=== PATIENT | female | born 1940 | race African-American/Black ===

== ENCOUNTER 2017-04-05 17:14 | Inpatient (IN) ==
--- NOTE | 2017-04-05 17:56 | Emergency Department Note ---
Arrival - Arrival Chief Complaint: Extremity Problem Stated Complaint: ELEVATED BP ED Nursing Triage Note: RLE PAIN AND SWELLING, ONSET OVER A MONTH AGO Mode of Arrival: Ambulatory Limitations: No Limitations Source: Patient, Family Time Seen by Provider: 04/05/17 17:55 - History of Present Illness HPI Narrative: The family complains of right lower extremity swelling and pain, especially upon waking in the morning, for the past month or more. They recall no injury. Patient has not had problems with this in the past and has no history of DVT. They also complain that her blood pressure "has been running triple digits" despite her being compliant with her medications. Allergies/Adverse Reactions: Allergies Allergy/AdvReac Type Severity Reaction Status Date / Time No Known Allergies Allergy Verified 04/05/17 17:22 Home Medications: Home Medications Medication Instructions Recorded Confirmed Type Aspirin EC Tab 1 tablet PO DAILY 01/09/17 01/09/17 History Dimethic/Zinc Ox/Vits A,D/Aloe [A 1 each TOP PRN PRN 01/09/17 01/09/17 History and D Diaper Rash Cream] Donepezil [Aricept] 10 mg PO DAILY 01/09/17 01/09/17 History Ferrous Sulfate Tab [Feosol 325 mg PO DAILY 01/09/17 01/09/17 History Original Tab] Glimepiride 1 mg PO DAILY W/BREAKFAST 01/09/17 01/09/17 History Latanoprost [Latanoprost 0.005 % 1 drops BOTH EYES BEDTIME 01/09/17 01/09/17 History Oph Soln] Lisinopril 20 mg PO DAILY 01/09/17 01/09/17 History Metformin HCl [Glucophage] 1,000 mg PO BID 01/09/17 01/09/17 History Rosuvastatin [Crestor] 10 mg PO DAILY 01/09/17 01/09/17 History Skin Healing Oint (Aquaphor) 1 each TOP PRN PRN 01/09/17 01/09/17 History [Aquaphor] Verapamil HCl [Verapamil ER Cap] 240 mg PO BEDTIME 01/09/17 01/09/17 History cloNIDine TAB [Catapres Tab] 0.2 mg PO BEDTIME 01/09/17 01/09/17 History dimenhyDRINATE TAB [Dramamine] 50 mg PO Q4-6H PRN 01/09/17 01/09/17 History Famotidine Tab [Pepcid Tab] 40 mg PO BEDTIME tablet 01/20/17 Rx Megestrol Tab [Megace Tab] 40 mg PO DAILY #30 tablet 01/20/17 Rx QUEtiapine [SEROquel] 12.5 mg PO DAILY@1800 tablet 01/20/17 Rx Review of System - Review of System 12 point system: reviewed and no additional remarkable complaints except as stated - Review of System Cardiovascular: Present: edema Musculoskeletal: Present: leg pain Medical,Surgical,& Family Hx - Medical History Cardio: History of: Hypertension Psychological: History of: Anxiety Disorders Neurology: History of: Cerebrovascular Accident, Dementia HEENT: History of: Glaucoma (wears glasses) Endocrine: History of: Diabetes Mellitus (NIDDM), Dyslipidemia Genitourinary: History of: Problems (Incontinence) Gastrointestinal: History of: GERD, GI Problems (Incontinence) Musculoskeletal: History of: Musculoskeletal Problems (Weakness) - Surgical History Abdominal Surgeries: Surgical HX of: Colonoscopy, EGD Reproductive Surgeries: Surgical HX of;: Hysterectomy - Family History Family History: noncontributory - Social History Smoking Status: Former smoker Exam Physical Examination: GENERAL: Alert. No acute distress. HEENT: Normocephalic and atraumatic. There is no nasal drainage. No pharyngeal erythema or exudate. NECK: Normal inspection. Supple. No lymphadenopathy or meningismus. LUNGS: No respiratory distress. Clear to auscultation bilaterally, no wheezes, rales or rhonchi. HEART: Regular rate and rhythm. ABDOMEN: Soft, nontender and nondistended with normoactive bowel sounds. BACK: Normal inspection. SKIN: Color normal. Warm and dry. EXTREMITIES: Mild diffuse right lower extremity tenderness. Equivocal Homans sign. Pitting edema to the upper tibia. Right lower extremity is slightly larger than the left. The distal extremity is neurovascularly intact and range of motion is full. NEUROLOGICAL/PSYCHIATRIC: Alert and oriented -3 with normal mood and affect. Cranial nerves normal. No motor or sensory deficit. Vital Signs: Vital Signs Temperature 98.2 F 04/05/17 17:18 Pulse Rate 84 04/05/17 18:14 Respiratory Rate 18 04/05/17 18:14 Blood Pressure 122/73 04/05/17 18:14 O2 Sat by Pulse Oximetry 100 04/05/17 18:14 Course - Reevaluation(s) Reevaluation #1: The patient has remained stable in the ER. Her blood pressure here was normal. The Doppler ultrasound shows a right sided DVT from the superficial femoral vein into the popliteal, nonoccluding. I have discussed the patient with Dr. Chung who will see her and admit. I have ordered Lovenox. Time: 19:41 Results - Labs CBC & BMP: 04/05/17 19:16 Disposition Clinical Impression: Deep vein thrombosis of lower extremity Case discussed with: patient, patient's family Disposition: Still a Patient Condition: Stable Time of Disposition: 19:42
--- NOTE | 2017-04-05 19:01 | Ultrasound Report ---
US venous doppler LE RT Indication: Pain and swelling. Comparison: None. Technique: Using transcutaneous probe, color Doppler, spectral Doppler, and grayscale images prior to and following compression were obtained of the right lower extremity. Ultrasound images were captured and stored. Interrogated venous structures include the right common femoral vein, superficial femoral vein (proximal, mid, and distal), and popliteal vein. Findings: Nonoccluding thrombus is demonstrated within the right superficial femoral vein, involving the mid to distal vessel propagating caudally into the right popliteal vein. Spectral flow and color flow are present within the interrogated venous segments. Impression: 1. Nonoccluding venous thrombus is present within the right lower extremity as detailed. Findings were discussed with Dr. Parks at the time of image acquisition. 04/05/2017 6:57 PM PROCEDURE INTERPRETED AT [facility] DEPARTMENT OF RADIOLOGY Final Report Signed by: Dr. Zach Foster
[2017-04-05 19:32] LABS: Basophils % 0.3 % (0.0-0.8); Eosinophils # 0.4 10*3/uL (0.0-0.87); Eosinophils % 4.2 % (0.00-10.9); Hematocrit 30.2 VOL% (35.7-47.0); Immature Granulocytes % 0.4 %; Immature Granulocytes Absolute 0.04 #; Lymphocytes # 3.2 10*3/uL (1.4-4.0); Lymphocytes % 33.4 % (21.3-54.2); Mean Corpuscular HGB Conc 33.1 GM/DL (32-36); Mean Corpuscular Hemoglobin 29 PG (27-34); Mean Corpuscular Volume 88.6 FL (87-102); Mean Platelet Volume 8.7 FL (9.6-12.0); Monocytes # 0.5 10*3/uL (0.11-0.8); Monocytes % 5.7 % (1.7-12.7); Neutrophils # 5.3 10*3/uL (1.4-7.4); Platelet Count 345 T/CUMM (130-400); Red Blood Count 3.41 MC/CUMM (3.8-5.5); Red Cell Distribution Width 14.3 % (9.3-17.3); White Blood Count 9.5 T/CUMM (4-12)
[2017-04-05] MEDS ORDERED: ENOXAPARIN 80 MG/0.8 ML SYRINGE SUBCUT STA (19:39)
[2017-04-05 19:44] LABS: PT Patient Result 11.1 SECS; Partial Thromboplastin Time 26.3 SECS (0-40)
[2017-04-05] MEDS ORDERED: ENOXAPARIN 80 MG/0.8 ML SYRINGE SUBCUT ONE (20:06)
--- NOTE | 2017-04-05 20:09 | Hospitalist History & Physical ---
Assessment and Plan - Time spent with patient Time spent discussing smoking cessation with patient: 3 to 10 minutes (1) Deep vein thrombosis of lower extremity Status: Acute Assessment and plan: The patient is admitted to the hospital for initiation of anticoagulation with Lovenox and Coumadin. The patient will follow up for pro time test with Dr. Klein in [place]. The patient's home medicines are reconciled and restarted we need to follow-up and get a current list of medicines from the patient's pharmacy. Current Visit: Yes Qualifiers: Affected thrombotic vein of extremity: popliteal Chronicity: acute Laterality: right Qualified Code(s): I82.431 - Acute embolism and thrombosis of right popliteal vein (2) Dementia with psychosis Status: Acute Current Visit: No (3) Late effects of CVA (cerebrovascular accident) Status: Acute Current Visit: No History of Present Illness Chief complaint: Right leg pain History of present illness: Ms. Gleason is a 76 year old female patient of Dr. Klein in [facility]. 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 The patient was last hospitalized at [facility] about a year and a half ago to help improve her mobility. She was unfortunately unable to participate with therapy due to her dementia. The patient has been at home in the care of her children. Beginning about 2 weeks ago she began having right popliteal discomfort. She had minimal swelling which has worsened. The patient has had minimal heat in the leg. The patient' s symptoms are moderate, continuous, and worsening slowly. The patient's symptoms have not been associated with fever, chills, shortness of breath, chest pain. The patient is found to have deep vein thrombosis on the right popliteal vein on ultrasound in fast track this afternoon and is admitted to the hospital to begin Coumadin and Lovenox. I screen the patient for tobacco and she is a current smoker. I gave her 4 minutes education concerning the need to discontinue smoking. I reconciled the patient's home medications of the time of admission. The patient is her own decision maker and wishes to be full code. Home Medications Medication Instructions Recorded Confirmed Type Aspirin EC Tab 1 tablet PO DAILY 01/09/17 01/09/17 History Dimethic/Zinc Ox/Vits A,D/Aloe [A 1 each TOP PRN PRN 01/09/17 01/09/17 History and D Diaper Rash Cream] Donepezil [Aricept] 10 mg PO DAILY 01/09/17 01/09/17 History Ferrous Sulfate Tab [Feosol 325 mg PO DAILY 01/09/17 01/09/17 History Original Tab] Glimepiride 1 mg PO DAILY W/BREAKFAST 01/09/17 01/09/17 History Latanoprost [Latanoprost 0.005 % 1 drops BOTH EYES BEDTIME 01/09/17 01/09/17 History Oph Soln] Lisinopril 20 mg PO DAILY 01/09/17 01/09/17 History Metformin HCl [Glucophage] 1,000 mg PO BID 01/09/17 01/09/17 History Rosuvastatin [Crestor] 10 mg PO DAILY 01/09/17 01/09/17 History Skin Healing Oint (Aquaphor) 1 each TOP PRN PRN 01/09/17 01/09/17 History [Aquaphor] Verapamil HCl [Verapamil ER Cap] 240 mg PO BEDTIME 01/09/17 01/09/17 History cloNIDine TAB [Catapres Tab] 0.2 mg PO BEDTIME 01/09/17 01/09/17 History dimenhyDRINATE TAB [Dramamine] 50 mg PO Q4-6H PRN 01/09/17 01/09/17 History Famotidine Tab [Pepcid Tab] 40 mg PO BEDTIME tablet 01/20/17 Rx Megestrol Tab [Megace Tab] 40 mg PO DAILY #30 tablet 01/20/17 Rx QUEtiapine [SEROquel] 12.5 mg PO DAILY@1800 tablet 01/20/17 Rx Allergies Allergy/AdvReac Type Severity Reaction Status Date / Time No Known Allergies Allergy Verified 04/05/17 17:22 Medical,Surgical,& Family Hx - Medical History Cardio: History of: Hypertension Psychological: History of: Anxiety Disorders Neurology: History of: Cerebrovascular Accident, Dementia HEENT: History of: Glaucoma (wears glasses) Endocrine: History of: Diabetes Mellitus (NIDDM), Dyslipidemia Genitourinary: History of: Problems (Incontinence) Gastrointestinal: History of: GERD, GI Problems (Incontinence) Musculoskeletal: History of: Musculoskeletal Problems (Weakness) - Surgical History Abdominal Surgeries: Surgical HX of: Colonoscopy, EGD Reproductive Surgeries: Surgical HX of;: Hysterectomy - Family History Family History: Reports;: Family Hypertension - Social History Smoking Status: Former smoker Marital Status: Lives With:: Children Functional capacity: uses cane/walker 12 point system: reviewed and no additional remarkable complaints except as stated Exam - Constitutional Vitals: Period Temp Pulse Resp BP Sys/Benavides Pulse Ox Last 24 Hr 98.2 F 68-84 16-18 122-128/68-73 99-100 Exam: Constitutional System: Mild distress. No tremulousness. Head: Normocephalic, atraumatic. Ears, Nose and Throat System: No evidence of Otitis or Mastoiditis. No epistaxis or discharge Eyes System: Pupils equal, round, and reactive. Extraocular muscles intact. Neck: Supple, without adenopathy, No jugular venous distention. No thyromegaly , neck mass, or prior surgery apparent. Respiratory System: Chest clear to auscultation. Cardiovascular System: Heart with regular rate and rhythm. No murmur. GI System: Abdomen soft, nontender. Normo active bowel sounds present. Musculoskeletal System: limbs with no pedal edema. There is some popliteal fullness on the right and the popliteal space is tender. She has mild fever in the lower extremity. Full distal pulses. Neurological System: No discernable sensory deficit. No aphasia Psychiatric System: Conversation is irrational Results - Labs CBC & BMP: 04/05/17 19:16 Lab Results: I have reviewed the past 24 hour labs Labs: Ultrasound of lower extremities reveals right popliteal deep vein thrombosis
[2017-04-05 20:27] LABS: Calcium 9.8 MG/DL (8.5-10.1); Osmolality,Calculated 275.7 MOS/KG (273-304); Potassium 3.8 MMOL/L (3.5-5.1)
[2017-04-05] MEDS ORDERED: ONDANSETRON 4 MG/2 ML VIAL IV PRN (20:41)
[2017-04-05] MEDS: SODIUM CHLORIDE 0.9% 1,000 ML IV SCH (22:30)
[2017-04-05] MEDS: WARFARIN 7.5 MG TABLET PO SCH (22:35)
[2017-04-05] MEDS: VERAPAMIL SR 240 MG TABLET PO SCH (22:35)
[2017-04-06 06:39] LABS: Basophils % 0.5 % (0.0-0.8); Eosinophils # 0.4 10*3/uL (0.0-0.87); Eosinophils % 6.7 % (0.00-10.9); Hemoglobin 8.7 GM/DL (12.0-16.0); Immature Granulocytes % 0.5 %; Immature Granulocytes Absolute 0.03 #; Lymphocytes # 2.3 10*3/uL (1.4-4.0); Lymphocytes % 38.8 % (21.3-54.2); Mean Corpuscular HGB Conc 33.5 GM/DL (32-36); Mean Corpuscular Hemoglobin 29 PG (27-34); Mean Corpuscular Volume 87.2 FL (87-102); Mean Platelet Volume 9.2 FL (9.6-12.0); Monocytes # 0.5 10*3/uL (0.11-0.8); Monocytes % 7.8 % (1.7-12.7); Neutrophils # 2.7 10*3/uL (1.4-7.4); Neutrophils % 45.7 % (38.7-73.9); Platelet Count 311 T/CUMM (130-400); Red Blood Count 2.98 MC/CUMM (3.8-5.5); Red Cell Distribution Width 14.2 % (9.3-17.3); White Blood Count 5.9 T/CUMM (4-12)
[2017-04-06 06:42] LABS: INR 1.1; PT Patient Result 11.6 SECS
[2017-04-06 07:03] LABS: Calcium 9.4 MG/DL (8.5-10.1); Magnesium 1.7 MG/DL (1.8-2.4); Osmolality,Calculated 277.5 MOS/KG (273-304); Potassium 3.7 MMOL/L (3.5-5.1)
[2017-04-06 07:16] LABS: Risk Ratio 3.67; Thyroid Stimulating Hormone 1.94 uIU/ml (0.358-3.74); VLDL CHOLESTEROL 24.4 MG/DL
[2017-04-06] MEDS: ASPIRIN EC 81 MG TABLET PO SCH (08:51)
[2017-04-06] MEDS: PANTOPRAZOLE 40 MG TABLET PO SCH (08:51)
[2017-04-06] MEDS ORDERED: ENOXAPARIN 80 MG/0.8 ML SYRINGE SUBCUT SCH (09:00)
--- NOTE | 2017-04-06 11:38 | Hospitalist Progress Note ---
Assessment and Plan (1) Deep vein thrombosis of lower extremity Status: Acute Assessment and plan: The patient is admitted to the hospital for initiation of anticoagulation with Lovenox and Coumadin. The patient will follow up for pro time test with Dr. Klein in [place]. T the patient continues on her usual home regimen of medications Current Visit: Yes Qualifiers: Affected thrombotic vein of extremity: popliteal Chronicity: acute Laterality: right Qualified Code(s): I82.431 - Acute embolism and thrombosis of right popliteal vein (2) Dementia with psychosis Status: Acute Current Visit: No (3) Late effects of CVA (cerebrovascular accident) Status: Acute Current Visit: No Hospitalist: Subjective Interval history: The patient states that she feels better today. The patient is cooperative with medical care. The patient is tolerating Coumadin plus Lovenox therapy for deep vein thrombosis. The patient states her leg is less symptomatic today. Exam - Constitutional Vitals: Period Temp Pulse Resp BP Sys/Benavides Pulse Ox Last 24 Hr 96.8 F-98.9 F 68-89 16-20 103-159/51-73 95-100 Exam: Constitutional System: Mild distress. No tremulousness. Head: Normocephalic, atraumatic. Ears, Nose and Throat System: No evidence of Otitis or Mastoiditis. No epistaxis or discharge Eyes System: Pupils equal, round, and reactive. Extraocular muscles intact. Neck: Supple, without adenopathy, No jugular venous distention. No thyromegaly , neck mass, or prior surgery apparent. Respiratory System: Chest clear to auscultation. Cardiovascular System: Heart with regular rate and rhythm. No murmur. GI System: Abdomen soft, nontender. Normo active bowel sounds present. Musculoskeletal System: limbs with no pedal edema. There is some popliteal fullness on the right and the popliteal space is less tender than yesterday. She has mild fever in the lower extremity. Full distal pulses. Neurological System: No discernable sensory deficit. No aphasia Psychiatric System: Conversation is irrational Results - Labs CBC & BMP: 04/06/17 06:09 04/06/17 06:09 Lab Results: I have reviewed the past 24 hour labs Labs: INR equals 1.1 today Quality Measures - VTE Contraindication to Pharmacological VTE Prophylaxis: Already on Theraputic Agent , No Prophylaxis Needed
[2017-04-06] MEDS: ENOXAPARIN 100 MG/ML SYRINGE SUBCUT SCH ×2 (12:23→23:23)
[2017-04-06] MEDS: WARFARIN 7.5 MG TABLET PO SCH (17:37)
[2017-04-06] MEDS: QUEtiapine 25 MG TABLET PO SCH (17:38)
[2017-04-06] MEDS ORDERED: ALBUTEROL/IPRATROPIUM 3 ML NEB RESP TX SCH (19:00)
[2017-04-06] MEDS: ALBUTEROL/IPRATROPIUM 3 ML NEB RESP TX SCH ×2 (19:26→23:22)
[2017-04-06] MEDS: VERAPAMIL SR 240 MG TABLET PO SCH (20:43)
[2017-04-06] MEDS: LATANOPROST 0.005% OPH SOLN 2.5 ML BOTTLE BOTH EYES SCH (20:45)
[2017-04-07] MEDS: SODIUM CHLORIDE 0.9% 1,000 ML IV SCH ×2 (01:23→09:10)
[2017-04-07 06:01] LABS: INR 1.5; PT Patient Result 16.1 SECS
[2017-04-07 06:20] LABS: Calcium 9.1 MG/DL (8.5-10.1); Magnesium 1.9 MG/DL (1.8-2.4); Osmolality,Calculated 282.3 MOS/KG (273-304); Potassium 3.3 MMOL/L (3.5-5.1)
[2017-04-07] MEDS: ALBUTEROL/IPRATROPIUM 3 ML NEB RESP TX SCH ×4 (07:34→19:57)
[2017-04-07] MEDS: DONEPEZIL 10 MG TABLET PO SCH (09:09)
[2017-04-07] MEDS: GLIMEPIRIDE 2 MG TABLET PO SCH (09:09)
[2017-04-07] MEDS: FERROUS SULFATE 325 MG TABLET PO SCH (09:09)
[2017-04-07] MEDS: ASPIRIN EC 81 MG TABLET PO SCH (09:09)
[2017-04-07] MEDS: PANTOPRAZOLE 40 MG TABLET PO SCH (09:09)
--- NOTE | 2017-04-07 11:36 | Hospitalist Progress Note ---
Assessment and Plan (1) Deep vein thrombosis of lower extremity Status: Acute Assessment and plan: The patient is admitted to the hospital for initiation of anticoagulation with Lovenox and Coumadin. The patient will follow up for pro time test with Dr. Klein in [place]. T the patient continues on her usual home regimen of medications Current Visit: Yes Qualifiers: Affected thrombotic vein of extremity: popliteal Chronicity: acute Laterality: right Qualified Code(s): I82.431 - Acute embolism and thrombosis of right popliteal vein (2) Dementia with psychosis Status: Acute Current Visit: No (3) Late effects of CVA (cerebrovascular accident) Status: Acute Current Visit: No Hospitalist: Subjective Interval history: Mrs. Gleason has less pain in her right leg today. She is cooperative with care. INR is increasing. I anticipate discharge home tomorrow. Exam - Constitutional Vitals: Period Temp Pulse Resp BP Sys/Benavides Pulse Ox Last 24 Hr 96.6 F-98.8 F 73-104 16-22 109-139/54-68 88-100 Exam: Constitutional System: Mild distress. No tremulousness. Head: Normocephalic, atraumatic. Ears, Nose and Throat System: No evidence of Otitis or Mastoiditis. No epistaxis or discharge Eyes System: Pupils equal, round, and reactive. Extraocular muscles intact. Neck: Supple, without adenopathy, No jugular venous distention. No thyromegaly , neck mass, or prior surgery apparent. Respiratory System: Chest clear to auscultation. Cardiovascular System: Heart with regular rate and rhythm. No murmur. GI System: Abdomen soft, nontender. Normo active bowel sounds present. Musculoskeletal System: limbs with no pedal edema. There is some popliteal fullness on the right and the popliteal space is less tender than yesterday. She has mild fever in the lower extremity. Full distal pulses. Neurological System: No discernable sensory deficit. No aphasia Psychiatric System: Conversation is irrational Results - Labs CBC & BMP: 04/06/17 06:09 04/07/17 05:08 Lab Results: I have reviewed the past 24 hour labs Quality Measures - VTE Contraindication to Pharmacological VTE Prophylaxis: Already on Theraputic Agent , No Prophylaxis Needed
[2017-04-07] MEDS: ENOXAPARIN 100 MG/ML SYRINGE SUBCUT SCH ×2 (13:38→23:45)
[2017-04-07] MEDS: WARFARIN 7.5 MG TABLET PO SCH (17:05)
[2017-04-07] MEDS: QUEtiapine 25 MG TABLET PO SCH (17:06)
[2017-04-07] MEDS: VERAPAMIL SR 240 MG TABLET PO SCH (20:33)
[2017-04-07] MEDS: LATANOPROST 0.005% OPH SOLN 2.5 ML BOTTLE BOTH EYES SCH (20:33)
[2017-04-08] MEDS: SODIUM CHLORIDE 0.9% 1,000 ML IV SCH (00:31)
[2017-04-08 05:46] LABS: Calcium 8.8 MG/DL (8.5-10.1); Magnesium 1.9 MG/DL (1.8-2.4)
[2017-04-08 07:00] LABS: INR 3.1
[2017-04-08] MEDS: ALBUTEROL/IPRATROPIUM 3 ML NEB RESP TX SCH ×2 (07:04→11:04)
[2017-04-08 07:07] LABS: PT Patient Result 35.6 SECS
[2017-04-08 08:59] VITALS: BP 126/61
[2017-04-08] MEDS ORDERED: OXYMETAZOLINE 0.05% NASAL SPRAY 15 ML BOTTLE BOTH NARES PRN (09:04)
[2017-04-08] MEDS: DONEPEZIL 10 MG TABLET PO SCH (10:00)
[2017-04-08] MEDS: GLIMEPIRIDE 2 MG TABLET PO SCH (10:01)
[2017-04-08] MEDS: FERROUS SULFATE 325 MG TABLET PO SCH (10:01)
[2017-04-08] MEDS: ASPIRIN EC 81 MG TABLET PO SCH (10:01)
[2017-04-08] MEDS: PANTOPRAZOLE 40 MG TABLET PO SCH (10:01)
--- NOTE | 2017-04-08 10:41 | Discharge Summary ---
Hospital Course - Hospital Course Hospital Course: The patient was admitted to the hospital with right greater than left leg pain. The patient's discomfort was located behind the right knee and Doppler ultrasound of lower extremities revealed left popliteal vein thrombosis. The patient was taking megestrol to help her appetite and this was discontinued. The patient was started on Lovenox and Coumadin was added. The patient's INR was therapeutic prior to discharge. The patient had no evidence of pulmonary embolism. The patient will follow up on Tuesday with pro time test and adjustment of Coumadin by Dr. Klein her primary care physician. On the date of discharge, chest is clear, abdomen soft and heart has regular rate and rhythm. The patient was screened for tobacco and found to be a prior smoker. The patient was given for minutes tobacco cessation education. The patient is her own decision maker and wished to be full code. The patient's medications were reconciled at the time of admission and again upon discharge. Discharge [id number] time today was 32 minutes. 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) Status: Chronic Discharge Plan - Discharge Data Disposition: Disch To Home/Self Care Condition at Discharge: Stable Discharge Diet: diabetic diet Activity: resume usual activities as tolerated - Discharge Medications New Warfarin [Coumadin] 3 mg PO DAILY@1800 #100 tablet Continue Ipratropium/Albuterol Inhaler [Combivent Respimat Inhaler] 1 puff INH QID Famotidine Tab [Pepcid Tab] 40 mg PO BEDTIME cloNIDine TAB [Catapres Tab] 0.2 mg PO BEDTIME Ferrous Sulfate Tab [Feosol Original Tab] 325 mg PO DAILY QUEtiapine [SEROquel] 12.5 mg PO DAILY@1800 tablet Latanoprost [Latanoprost 0.005 % Oph Soln] 1 drops BOTH EYES BEDTIME Verapamil HCl [Verapamil ER Cap] 240 mg PO BEDTIME Glimepiride 1 mg PO DAILY W/BREAKFAST Donepezil [Aricept] 10 mg PO DAILY Rosuvastatin [Crestor] 10 mg PO DAILY Aspirin EC Tab 1 tablet PO DAILY Metformin HCl [Glucophage] 1,000 mg PO BID Discontinued Megestrol Tab [Megace Tab] 40 mg PO DAILY - Follow Up or Referral - Forms/Instructions Exam - Constitutional Vitals: Period Temp Pulse Resp BP Sys/Benavides Pulse Ox Last 24 Hr 97.6 F-98 F 74-87 15-20 109-138/59-66 92-99 Discharge Results Procedures and tests throughout hospitalization: Pending Orders 04/09/17 04:00 Basic Metabolic Panel w/Mg IN AM Prothrombin Time INR IN AM 04/10/17 04:00 Basic Metabolic Panel w/Mg IN AM Prothrombin Time INR IN AM Labs on day of discharge: Labs from last 24 hours 04/08/17 04/08/17 04:44 04:44 INR 3.1 PT Patient/Control Mix 35.6 D Sodium 143 Potassium 4.0 Chloride 108 H Carbon Dioxide 27 Anion Gap 12.0 BUN 9 Creatinine 0.80 GFR Calculation 94 BUN/Creatinine Ratio 11.00 Glucose 147 H Calculated Osmolality 286.0 Calcium 8.8 Magnesium 1.9 DS: Provider Date of admission: 04/05/17 19:46 Primary care physician: . No PCP Attending physician on admission: Judd Crocker MD Discharging clinician: Pavel Chung MD
== END 2017-04-08 12:33 | disposition home health service (06) | DRG 300 ==
LOC: N.ED 17:14 → N.EDINP 19:46 → SUATTDRO 19:46 → N.EDINP 20:34 → N.4E 20:40
PROVIDERS: ADMIT Family Medicine; ATTEND Internal Medicine

== ENCOUNTER 2017-05-05 08:20 | Inpatient (IN) ==
--- NOTE | 2017-05-05 09:14 | Emergency Department Note ---
Prabhjot Uribe Hilary, am scribing for, and in the presence of, Rob Schofield MD 09: 08. Kanwal Uribe James D, MD, personally performed the services described in this documentation, ascribed by Shreya Rick in my presence, and it is both accurate and complete 912 . Arrival - Arrival Chief Complaint: Extremity Problem Stated Complaint: evaluation for clot,[facility]: pain in right leg. stopped ambulating yesterday. has been being treated for a clot in right leg for more than two weeks. is taking coumadin for that Mode of Arrival: Wheelchair Limitations: No Limitations Source: Patient, RN Notes Reviewed Time Seen by Provider: 05/05/17 09:01 - History of Present Illness HPI Narrative: Pt is a 76 y/o presenting to the ED with c/o of pain in her right leg which onset yesterday. Pt is of limited historical value due to her dementia. Pts family states that she has been treated for a clot in her right leg for 2 weeks and is taking coumadin for it. Her family reports that she stopped walking this morning or putting weight on her legs. She denies any pain or SOB. Pt has a PMHx of HTN, CVA, Dementia, Glaucoma, Dyslipidemia, NIDDM and GI Incontinence. No other complaints or problems stated in the ED. Onset (ago): hour(s) Consistency: constant Severity: mild Severity scale (1-10): 1 Allergies/Adverse Reactions: Allergies Allergy/AdvReac Type Severity Reaction Status Date / Time No Known Allergies Allergy Verified 04/05/17 17:22 Home Medications: Home Medications Medication Instructions Recorded Confirmed Type Aspirin EC Tab 1 tablet PO DAILY 01/09/17 04/06/17 History Donepezil [Aricept] 10 mg PO DAILY 01/09/17 04/06/17 History Ferrous Sulfate Tab [Feosol 325 mg PO DAILY 01/09/17 04/06/17 History Original Tab] Glimepiride 1 mg PO DAILY W/BREAKFAST 01/09/17 04/06/17 History Latanoprost [Latanoprost 0.005 % 1 drops BOTH EYES BEDTIME 01/09/17 04/06/17 History Oph Soln] Metformin HCl [Glucophage] 1,000 mg PO BID 01/09/17 04/06/17 History Rosuvastatin [Crestor] 10 mg PO DAILY 01/09/17 04/06/17 History Verapamil HCl [Verapamil ER Cap] 240 mg PO BEDTIME 01/09/17 04/06/17 History cloNIDine TAB [Catapres Tab] 0.2 mg PO BEDTIME 01/09/17 04/06/17 History QUEtiapine [SEROquel] 12.5 mg PO DAILY@1800 tablet 01/20/17 04/06/17 Rx Famotidine Tab [Pepcid Tab] 40 mg PO BEDTIME 04/06/17 04/06/17 History Ipratropium/Albuterol Inhaler 1 puff INH QID 04/06/17 04/06/17 History [Combivent Respimat Inhaler] Warfarin [Coumadin] 3 mg PO DAILY@1800 #100 tablet 04/08/17 Rx Review of System - Review of System 12 point system: reviewed and no additional remarkable complaints except as stated - Review of System Constitutional: Present: weakness. Absent: fever Respiratory: Absent: respiratory distress (SOB) Cardiovascular: Absent: chest pain Gastrointestinal: Absent: abdominal pain, nausea, vomiting Musculoskeletal: Absent: leg pain Neurological: Present: weakness Medical,Surgical,& Family Hx - Medical History Cardio: History of: Hypertension Psychological: History of: Anxiety Disorders Neurology: History of: Cerebrovascular Accident, Dementia HEENT: History of: Glaucoma (wears glasses) Endocrine: History of: Diabetes Mellitus (NIDDM), Dyslipidemia Genitourinary: History of: Problems (Incontinence) Gastrointestinal: History of: GERD, GI Problems (Incontinence) Musculoskeletal: History of: Musculoskeletal Problems (Weakness) - Surgical History Abdominal Surgeries: Surgical HX of: Colonoscopy, EGD Reproductive Surgeries: Surgical HX of;: Hysterectomy - Family History Family History: Reports;: Family Hypertension Denies;: Family Diabetes - Social History Smoking Status: Former smoker Exam Physical Examination: GENERAL: This is a well-nourished, well-developed female in no apparent distress. VITAL SIGNS: Temperature: 99.3 Pulse: 107 Respiratory: 20 Blood Pressure: 121/79 O2 Sat: 99 HEENT: Head is normocephalic and atraumatic. Pupils are equally round and reactive to light. Extraocular movement are intact. Oropharynx is benign with moist mucous membranes. NECK: Neck is soft and supple without tenderness. There are no masses. There is no lymphadenopathy. LUNGS: Lungs are clear to auscultation bilaterally. Chest rises symmetrically. There is no chest wall tenderness. CV: Heart is regular rate and rhythm without murmurs, rubs, or gallops. ABDOMEN: Abdomen is soft, non-tender to palpation. There are no abnormal masses palpated. There is no organomegaly. Bowel sounds are present and active. SKIN: Skin is warm and dry. No rash. EXTREMITIES: Patient has full range of motion without tenderness. There is no pedal edema. NEUROLOGIC: Awake, alert, and oriented x4. Cranial nerves II through XII are grossly intact. Motor weakness in lower extremities 2/5 bilaterally, 3-4/5 in upper extremities bilaterally. Vital Signs: Vital Signs Temperature 99.3 F 05/05/17 08:31 Pulse Rate 107 H 05/05/17 08:31 Respiratory Rate 20 05/05/17 08:31 Blood Pressure 121/79 05/05/17 08:31 O2 Sat by Pulse Oximetry 99 05/05/17 08:31 Course - Consultations Consultation #1: Discussed with hospitalist. Patient will be admitted to their service. Time: 11:01 Results - Labs CBC & BMP: 05/05/17 09:45 05/05/17 09:45 Lab Results: I have reviewed the patients labs Labs: Laboratory Tests 05/05/17 09:15 POC Glucose 233 H Laboratory Tests 05/05/17 09:45 WBC 8.0 RBC 3.43 L Hgb 10.0 L Hct 29.7 L MCV 86.6 L Plt Count 377 MPV 8.7 L Laboratory Tests 05/05/17 09:45 INR 1.1 PT Patient/Control Mix 12.0 D Circ Anticoag PTT 31.0 Laboratory Tests 05/05/17 05/05/17 09:45 10:03 Sodium 136 Potassium 3.9 Chloride 102 Carbon Dioxide 26 Glucose 277 H ALT 11 L Globulin 4.2 H Albumin/Globulin Ratio 0.8 L Urine pH 5.0 Ur Specific [place] 1.013 Urine Glucose (UA) 150 Urine Ketones 5 Urine Urobilinogen < 2.0 H Urine RBC <1 Urine WBC 1 - Diagnostic Findings Procedure: Chest x-ray: report reviewed by me, image reviewed by me (1. ASVD 2. No acute cardiopulmonary pathology with a few scattered reticular nodular densities are partially calcified suggesting granuloma changes inthe lung hernandez bilaterally. ), CT: report reviewed by me, image reviewed by me (HEAD: Chronic ischemic changes. No definite acute intracranial process compared to the previous study) Disposition Clinical Impression: Lower extremity weakness, DVT (deep venous thrombosis), Dementia, Diabetes mellitus Case discussed with: patient Disposition: Still a Patient Condition: Stable
--- NOTE | 2017-05-05 09:40 | CT Report ---
History: Altered mental status Date: 05/05/2017 Study: CT head without contrast Comparison exam: MRI brain December 16, [address] sections were obtained through the head without IV contrast. Total DLP measures 914.6 mGy*cm. There is moderate diffuse cerebral atrophy. The ventricles are midline in position without evidence of hydrocephalus. There is no mass or parenchymal hemorrhage. There is no gross CT evidence of acute cortical stroke. There is a moderate amount of ill-defined low density in the periventricular white matter without mass effect compatible with changes of small vessel disease. There is no extra-axial hematoma. There is a rounded area of previous lacunar infarction measuring 4.6 mm in the left kathleen radiata. There is no acute abnormality of the calvarium. The partially visualized paranasal sinuses and mastoid air cells are clear. There is moderate distal carotid artery calcification. Impression: Chronic ischemic changes. No definite acute intracranial process compared to the previous study. This CT exam was performed using one or more the following dose reduction techniques: Automated exposure control, adjustment of the MA and/or KV according to patient size, or use of iterative reconstruction technique. PROCEDURE INTERPRETED AT [facility] DEPARTMENT OF RADIOLOGY Final Report Signed by: Dr. Stacey Gamboa
--- NOTE | 2017-05-05 09:43 | XRay Report ---
Exam: XR chest 1V portable Date: 05/05/2017 9:11 AM Indication: Altered mental status weakness Comparison: None Technical: AP Findings: External cardiac leads are present. ASVD is present. No obvious infiltrate or effusion. Lateral marginal osteophytes are present. Mediastinum is unremarkable. Heart is normal in size. Minimal granuloma changes present. Impression: 1. ASVD 2. No acute cardiopulmonary pathology with a few scattered reticular nodular densities are partially calcified suggesting granuloma changes in the lung hernandez bilaterally PROCEDURE INTERPRETED AT [facility] DEPARTMENT OF RADIOLOGY Final Report Signed by: Dr. Yovanny Rockwell
[2017-05-05 09:53] LABS: Basophils % 0.4 % (0.0-0.8); Eosinophils # 0.4 10*3/uL (0.0-0.87); Eosinophils % 4.7 % (0.00-10.9); Hematocrit 29.7 VOL% (35.7-47.0); Immature Granulocytes % 0.4 %; Immature Granulocytes Absolute 0.03 #; Lymphocytes # 2.3 10*3/uL (1.4-4.0); Mean Corpuscular HGB Conc 33.7 GM/DL (32-36); Mean Corpuscular Hemoglobin 29 PG (27-34); Mean Corpuscular Volume 86.6 FL (87-102); Mean Platelet Volume 8.7 FL (9.6-12.0); Monocytes # 0.5 10*3/uL (0.11-0.8); Monocytes % 5.6 % (1.7-12.7); Neutrophils # 4.9 10*3/uL (1.4-7.4); Neutrophils % 60.9 % (38.7-73.9); Platelet Count 377 T/CUMM (130-400); Red Blood Count 3.43 MC/CUMM (3.8-5.5); Red Cell Distribution Width 14.3 % (9.3-17.3)
[2017-05-05 10:10] LABS: INR 1.1
[2017-05-05 10:25] LABS: Albumin 3.6 G/DL (3.4-5.0); Bilirubin,Total 0.4 MG/DL (0.2-1.0); Potassium 3.9 MMOL/L (3.5-5.1); Total Protein 7.8 G/DL (6.4-8.3)
[2017-05-05 10:42] LABS: Apearance,Urine Slightly Hazy (Clear); Bilirubin,Urine Negative (Negative); Blood, Urine Negative (Negative); Glucose,Urine (UA) 150 mg/dL (Negative); Ketones,Urine 5 mg/dL (Negative); Mucus,Urine Occasional /LPF (Occasional); Nitrite,Urine Negative (Negative); Protein,Urine Negative; RBC,Urine <1 /HPF (0-4); Squamous Epithelial Cell,Urine Occasional /HPF (0-10); Urine Color Yellow (Yellow); Urine Specific Gravity 1.013 (1.001-1.035); Urine Urobilinogen < 2.0 EU/DL (0.2-1.0); WBC,Urine 1 /HPF (0-6)
[2017-05-05 10:47] LABS: Barbiturates Screen,Urine Negative (Negative); Benzodiazepines Screen,Urine Negative (Negative); Cannabinoid Screen,Urine Negative (Negative); Opiate Screen,Urine Negative (Negative); Phencyclidine Screen,Urine Negative (Negative)
[2017-05-05] MEDS ORDERED: diphenhydrAMINE CAP 25 MG CAPSULE PO PRN (11:28)
[2017-05-05] MEDS ORDERED: guaiFENesin/DM ER 600-30 MG TABLET PO PRN (11:28)
[2017-05-05] MEDS ORDERED: ACETAMINOPHEN 325 MG TABLET PO PRN ×2 (11:28)
[2017-05-05] MEDS ORDERED: DEXTROSE 50% 25 GM/50 ML VIAL IV PRN (11:28)
[2017-05-05] MEDS ORDERED: GLUCAGON 1 MG VIAL IM PRN (11:28)
[2017-05-05] MEDS ORDERED: ONDANSETRON 4 MG/2 ML VIAL IV PRN (11:28)
[2017-05-05] MEDS ORDERED: MORPHINE 2 MG/1 ML SYRINGE IV PRN (11:28)
[2017-05-05] MEDS ORDERED: DOCUSATE SODIUM 100 MG CAPSULE PO PRN (11:28)
--- NOTE | 2017-05-05 11:39 | Hospitalist History & Physical ---
<Jessica Roberts - Last Filed: 05/05/17 11:34> Assessment and Plan - Time spent with patient Time spent with patient: Greater than 30 minutes (1) Hypertension Status: Acute Assessment and plan: 76-year-old -Maced[place] female with history of diabetes, hypertension, dementia, and recent right lower extremity DVT on Coumadin admitted by the hospitalist service with increasing pain of the right lower extremity and subtherapeutic INR of 1.1. Patient will be bridged with 1 mg/kg of Lovenox and Coumadin 5 mg p.o. daily. Will check an ultrasound of the right lower extremity to see if there is been extension of the clot. If there is an issue with following up INRs it may be beneficial to start patient on Eliquis instead of Coumadin. Will discuss this with Dr. Srinivasan. In the meantime will restart patient's home medication once they get entered into the system. We will start sliding scale insulin to monitor her diabetes. Dr. Srinivasan will see and examine patient and further recommendations to follow. Current Visit: Yes (2) Right leg pain Status: Acute Current Visit: Yes (3) Diabetes Status: Acute Current Visit: No (4) DVT (deep venous thrombosis) Status: Acute Current Visit: Yes (5) Dementia Status: Acute Current Visit: Yes History of Present Illness Chief complaint: Right leg pain History of present illness: Ms. Gleason is a 76 year old -Maced[place] female with history of dementia, diabetes, hypertension, and right lower extremity DVT on Coumadin presenting to the ED with a 3 day history of increasing right lower extremity pain and inability to walk. History taken from the patient, daughter and daughter-in- law at the bedside. Patient was previously admitted on 04/05/2017 with new onset right lower extremity DVT. She was bridged with Lovenox and Coumadin and discharged on 04/08/2017 on 3 mg of Coumadin daily with an INR of 3.1. Patient was to follow-up with Dr. Klein the PCP in 1 week for blood work. Daughter states that it was several days before they could get the Coumadin filled but they have been giving it to her since. No INR has been done since restarting the medicine. Patient and [id number] both state that starting Tuesday patient was not really wanting to stand up on the right leg. She was complaining of increasing pain. She denies blurry vision, fever, dysphagia, chest pain, shortness of breath, abdominal pain, or left lower extremity pain or edema. Patient is afebrile and vital signs are stable. H&H is up from previous admission to 06/26.7 but her INR is only 1.1. Remainder of her chemistry is basically normal. UA is negative along with CT of the head. Upon exam patient has no right lower extremity edema but she is tender to palpation from posterior distal thigh down to her ankle. She has normal motor function and sensation bilaterally. After discussion with Dr. Schofield the ED physician and Dr. Srinivasan the admitting hospitalist, it was agreed patient would be admitted for further evaluation and treatment. Patient's medicines will be reconciled once they have been entered into the [employer] system. Patient is a full code. Home Medications Medication Instructions Recorded Confirmed Type Donepezil [Aricept] 10 mg PO BEDTIME 01/09/17 05/05/17 History Ferrous Sulfate Tab [Feosol 325 mg PO BEDTIME 01/09/17 05/05/17 History Original Tab] Latanoprost [Latanoprost 0.005 % 1 drops BOTH EYES BEDTIME 01/09/17 05/05/17 History Oph Soln] Metformin HCl [Glucophage] 1,000 mg PO BID 01/09/17 05/05/17 History Rosuvastatin [Crestor] 10 mg PO DAILY 01/09/17 05/05/17 History Verapamil HCl [Verapamil ER Cap] 240 mg PO BEDTIME PRN 01/09/17 05/05/17 History cloNIDine TAB [Catapres Tab] 0.2 mg PO BEDTIME PRN 01/09/17 05/05/17 History Famotidine Tab [Pepcid Tab] 20 mg PO BEDTIME 05/05/17 05/05/17 History Glimepiride [Glimepiride] 2 mg PO BID 05/05/17 05/05/17 History QUEtiapine [SEROquel] 25 mg PO QAM 05/05/17 05/05/17 History Warfarin [Coumadin] 1 mg PO DAILY@1300 05/05/17 05/05/17 History Allergies Allergy/AdvReac Type Severity Reaction Status Date / Time No Known Allergies Allergy Verified 04/05/17 17:22 Medical,Surgical,& Family Hx - Medical History Cardio: History of: Hypertension Psychological: History of: Anxiety Disorders Neurology: History of: Cerebrovascular Accident, Dementia HEENT: History of: Glaucoma (wears glasses) Endocrine: History of: Diabetes Mellitus (NIDDM), Dyslipidemia Genitourinary: History of: Problems (Incontinence) Gastrointestinal: History of: GERD, GI Problems (Incontinence) Musculoskeletal: History of: Musculoskeletal Problems (Weakness) - Surgical History Abdominal Surgeries: Surgical HX of: Colonoscopy, EGD Reproductive Surgeries: Surgical HX of;: Hysterectomy - Family History Family History: Reports;: Family Heart Disease, Family Hypertension Denies;: Family Diabetes - Social History Smoking Status: Former smoker Frequency of Alcohol Use: None Type of Drug Use: None Marital Status: Single Lives With:: Children Functional capacity: uses cane/walker 12 point system: reviewed and no additional remarkable complaints except as stated Exam - Constitutional Vitals: Period Temp Pulse Resp BP Sys/Benavides Pulse Ox Last 24 Hr 99.3 F 107 20 121/79 99 Exam: Constitutional System: No distress. No tremulousness. Head: Normocephalic, atraumatic. Ears, Nose and Throat System: No evidence of Otitis or Mastoiditis. No epistaxis or discharge Eyes System: Pupils equal, round, and reactive. Extraocular muscles intact. Neck: Supple, without adenopathy, No jugular venous distention. No thyromegaly, neck mass, or prior surgery apparent. Respiratory System: Chest clear to auscultation. Cardiovascular System: Heart with regular rate and rhythm. No murmur. GI System: Abdomen soft, nontender. Normo active bowel sounds present. Musculoskeletal System: limbs with no pedal edema. Full distal pulses. Neurological System: No discernable sensory deficit. No aphasia Psychiatric System: Conversation is rational Results - Labs CBC & BMP: 05/05/17 09:45 05/05/17 09:45 Lab Results: I have reviewed the past 24 hour labs - Diagnostic Findings Procedure: Chest x-ray: report reviewed by me (ASVD, no acute cardiopulmonary pathology), CT: report reviewed by me (CT the head shows chronic ischemic changes with no definite acute intracranial process.) Quality Measures - VTE Contraindication to Mechanical VTE Prophylaxis: Current Diagnosis of DVT <Jesus Srinivasan - Last Filed: 05/05/17 14:30> History of Present Illness History of present illness: Ms. Gleason is a 76 year old female is being admitted to the hospital with pain in her right lower extremity. She has a previous history of deep vein thrombophlebitis of the right lower extremity being treated with warfarin. Her INR in the emergency department is 1.1 suggestive of failure to comply with the prescribed warfarin. I have interviewed the patient, examined the patient, and reviewed all available laboratory and radiographic test results. I agree with the assessment and plans of VICK Mckeon. Patient will be admitted to the hospital. She will be treated with Lovenox 100 mg subcutaneous every 12 hours and restarted on warfarin 5 mg p.o. daily. We will obtain a venous duplex Doppler examination of the right lower extremity. Exam - Constitutional Vitals: Period Temp Pulse Resp BP Sys/Benavides Pulse Ox Last 24 Hr 99.3 F-99.3 F 100-114 20-28 121-146/79-96 95-100 Results - Labs CBC & BMP: 05/05/17 09:45 05/05/17 09:45
--- NOTE | 2017-05-05 12:03 | Ultrasound Report ---
Exam: US venous doppler LE RT Indication: Swelling right lower extremity Date: 05/05/2017 11:32 AM Comparison 04/05/2017 Findings: Grayscale color flow duplex/Doppler imaging and spectral analysis waveform imaging was performed with real-time ultrasound with image stored and captured. The right common femoral, saphenous veins are patent with normal augmentation and compression. There is no evidence of popliteal or Ramachandran's cyst. Normal wave form analysis present. Normal color flow there is nonoccluding thrombus in the distal right as FMD in the popliteal vein. Findings appear similar to previous exam. Impression: 1. Nonoccluding thrombus in the superficial femoral and popliteal veins appear similar to previous exam. PROCEDURE INTERPRETED AT [facility] DEPARTMENT OF RADIOLOGY Final Report Signed by: Dr. Yvoanny Rockwell
[2017-05-05] MEDS ORDERED: VERAPAMIL SR 240 MG TABLET PO PRN (14:18)
[2017-05-05] MEDS: ENOXAPARIN 100 MG/ML SYRINGE SUBCUT SCH (15:26)
[2017-05-05] MEDS: SODIUM CHLORIDE 0.9% 1,000 ML IV SCH ×3 (15:26→23:29)
[2017-05-05] MEDS: WARFARIN 5 MG TABLET PO SCH (15:26)
[2017-05-05] MEDS: PANTOPRAZOLE 40 MG TABLET PO SCH (15:26)
[2017-05-05] MEDS: ROSUVASTATIN 10 MG TABLET PO SCH (15:26)
[2017-05-05] MEDS: INSULIN LISPRO 100 UNIT/ML SUBCUT SCH (16:50)
[2017-05-05] MEDS: DONEPEZIL 10 MG TABLET PO SCH (21:26)
[2017-05-05] MEDS: FERROUS SULFATE 325 MG TABLET PO SCH (21:26)
[2017-05-05] MEDS: LATANOPROST 0.005% OPH SOLN 2.5 ML BOTTLE BOTH EYES SCH (21:42)
[2017-05-06] MEDS: ENOXAPARIN 100 MG/ML SYRINGE SUBCUT SCH ×2 (03:45→16:29)
[2017-05-06] MEDS: SODIUM CHLORIDE 0.9% 1,000 ML IV SCH ×3 (04:35→14:57)
[2017-05-06 05:26] LABS: Basophils % 0.3 % (0.0-0.8); Eosinophils # 0.4 10*3/uL (0.0-0.87); Eosinophils % 6.3 % (0.00-10.9); Hematocrit 27.4 VOL% (35.7-47.0); Hemoglobin 8.9 GM/DL (12.0-16.0); Immature Granulocytes % 0.3 %; Immature Granulocytes Absolute 0.02 #; Lymphocytes # 2.2 10*3/uL (1.4-4.0); Lymphocytes % 35.3 % (21.3-54.2); Mean Corpuscular HGB Conc 32.5 GM/DL (32-36); Mean Corpuscular Hemoglobin 29 PG (27-34); Mean Corpuscular Volume 87.8 FL (87-102); Mean Platelet Volume 9.4 FL (9.6-12.0); Monocytes # 0.4 10*3/uL (0.11-0.8); Monocytes % 6.8 % (1.7-12.7); Neutrophils # 3.2 10*3/uL (1.4-7.4); Platelet Count 367 T/CUMM (130-400); Red Blood Count 3.12 MC/CUMM (3.8-5.5); Red Cell Distribution Width 14.2 % (9.3-17.3); White Blood Count 6.3 T/CUMM (4-12)
[2017-05-06 05:42] LABS: INR 1.1; PT Patient Result 12.2 SECS
[2017-05-06 06:00] LABS: Calcium 9.1 MG/DL (8.5-10.1)
[2017-05-06 06:01] LABS: Osmolality,Calculated 282.3 MOS/KG (273-304); Potassium 3.2 MMOL/L (3.5-5.1)
[2017-05-06] MEDS: INSULIN LISPRO 100 UNIT/ML SUBCUT SCH ×2 (07:30→16:26)
[2017-05-06] MEDS ORDERED: POTASSIUM CHLORIDE 20 MEQ TABLET PO ONE (07:54)
[2017-05-06] MEDS: QUEtiapine 25 MG TABLET PO SCH (08:42)
[2017-05-06] MEDS: PANTOPRAZOLE 40 MG TABLET PO SCH (08:42)
[2017-05-06] MEDS: ROSUVASTATIN 10 MG TABLET PO SCH (08:42)
[2017-05-06] MEDS: WARFARIN 5 MG TABLET PO SCH (08:52)
--- NOTE | 2017-05-06 12:57 | Hospitalist Progress Note ---
Assessment and Plan (1) DVT (deep venous thrombosis) Status: Acute Assessment and plan: 1)DVT- on therapeutic doses of lovenox now and also coumadin. Check daily INR. Daughter will also need counselling re:coumadin and the importance of consistently taking the med and having INR checked. Probably should be reinforced by home health after discharge. 2)DM- glucose 166-296. On SSI. restart metformin and glimepiride 3)old stroke 4)dementia- continue usual meds. Current Visit: Yes (2) Dementia with psychosis Status: Chronic Current Visit: No (3) Diabetes mellitus Status: Acute Current Visit: Yes Hospitalist: Subjective Interval history: Mrs Gleason says she feels good this morning. When I ask her if her right leg hurts she says it does. No nausea or vomiting,no shortness of breath. Her daughter is not present. Exam - Constitutional Vitals: Period Temp Pulse Resp BP Sys/Benavides Pulse Ox Last 24 Hr 96.3 F-99.1 F 65-104 18-20 134-164/65-87 95-100 General appearance: no acute distress, morbidly obese - Eye Eye exam: Present: EOMI. Absent: scleral icterus - Respiratory Respiratory exam: Present: clear to auscultation bilaterally - Cardiovascular Cardiovascular exam: Present: regular rate and rhythm - Extremities Exam Extremities exam: Present: edema (right leg, no erythema, mildly tender) - Neurological Exam Neurological exam: Present: alert, oriented X3 - Skin Skin exam: Present: warm, dry Results - Labs CBC & BMP: 05/06/17 04:23 05/06/17 04:23 Lab Results: I have reviewed the past 24 hour labs Quality Measures - VTE Contraindication to Mechanical VTE Prophylaxis: Current Diagnosis of DVT
[2017-05-06] MEDS: WARFARIN 10 MG TABLET PO SCH (18:11)
[2017-05-06] MEDS: DONEPEZIL 10 MG TABLET PO SCH (21:02)
[2017-05-06] MEDS: GLIMEPIRIDE 2 MG TABLET PO SCH (21:02)
[2017-05-06] MEDS: FERROUS SULFATE 325 MG TABLET PO SCH (21:02)
[2017-05-06] MEDS: metFORMIN 500 MG TABLET PO SCH (21:06)
[2017-05-06] MEDS: LATANOPROST 0.005% OPH SOLN 2.5 ML BOTTLE BOTH EYES SCH (21:06)
[2017-05-07] MEDS: ENOXAPARIN 100 MG/ML SYRINGE SUBCUT SCH ×2 (03:50→17:41)
[2017-05-07 06:24] LABS: INR 1.5; PT Patient Result 16.1 SECS
[2017-05-07 06:39] LABS: Osmolality,Calculated 279.4 MOS/KG (273-304); Potassium 3.4 MMOL/L (3.5-5.1)
[2017-05-07] MEDS: INSULIN LISPRO 100 UNIT/ML SUBCUT SCH ×2 (07:30→16:30)
[2017-05-07] MEDS: PANTOPRAZOLE 40 MG TABLET PO SCH (09:06)
[2017-05-07] MEDS: MEGESTROL 40 MG TABLET PO SCH (09:06)
[2017-05-07] MEDS: QUEtiapine 25 MG TABLET PO SCH (09:06)
[2017-05-07] MEDS: ROSUVASTATIN 10 MG TABLET PO SCH (09:06)
[2017-05-07] MEDS: GLIMEPIRIDE 2 MG TABLET PO SCH ×2 (09:06→20:30)
[2017-05-07] MEDS: metFORMIN 500 MG TABLET PO SCH ×2 (09:06→20:30)
--- NOTE | 2017-05-07 11:20 | Hospitalist Progress Note ---
Assessment and Plan (1) Chronic anticoagulation Status: Chronic Assessment and plan: On Coumadin. Subtherapeutic on admission. Continue Lovenox and Coumadin until INR greater than 2. 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 Current Visit: No (3) Diabetes Status: Chronic Current Visit: No Qualifiers: Diabetes mellitus type: type 2 (4) Deep vein thrombosis of lower extremity Status: Chronic Current Visit: No Qualifiers: Affected thrombotic vein of extremity: popliteal Chronicity: acute Laterality: right Qualified Code(s): I82.431 - Acute embolism and thrombosis of right popliteal vein (5) Dementia Status: Chronic Current Visit: Yes Qualifiers: Dementia type: Alzheimer's disease Alzheimer's disease onset: unspecified onset Dementia behavioral disturbance: with behavioral disturbance Qualified Code(s): G30.8 - Other Alzheimer's disease; F02.81 - Dementia in other diseases classified elsewhere with behavioral disturbance Hospitalist: Subjective Interval history: Patient seen and examined. No acute events overnight. Case discussed with nursing staff. Labs reviewed. INR 1.5 Exam - Constitutional Vitals: Period Temp Pulse Resp BP Sys/Benavides Pulse Ox Last 24 Hr 96 F-97.9 F 65-109 18-22 137-179/72-88 98-100 Exam: Constitutional System: No distress. No tremulousness. Head: Normocephalic, atraumatic. Ears, Nose and Throat System: No pain or tenderness. No epistaxis or discharge Eyes System: Pupils equal, round, and reactive. Extraocular muscles intact. Neck: Supple, without adenopathy, No jugular venous distention. No thyromegaly, neck mass, or prior surgery apparent. Respiratory System: Chest clear to auscultation. Cardiovascular System: Heart with regular rate and rhythm. No murmur. GI System: Abdomen soft, nontender. Normo active bowel sounds present. Musculoskeletal System: Right lower extremity with pedal edema. Full distal pulses. Normal capillary refill. Results - Labs CBC & BMP: 05/06/17 04:23 05/07/17 05:35 Lab Results: I have reviewed the past 24 hour labs Quality Measures - VTE Contraindication to Mechanical VTE Prophylaxis: Current Diagnosis of DVT
[2017-05-07] MEDS: WARFARIN 10 MG TABLET PO SCH (17:40)
[2017-05-07] MEDS: DONEPEZIL 10 MG TABLET PO SCH (20:30)
[2017-05-07] MEDS: FERROUS SULFATE 325 MG TABLET PO SCH (20:30)
[2017-05-07] MEDS: LATANOPROST 0.005% OPH SOLN 2.5 ML BOTTLE BOTH EYES SCH ×2 (20:32→21:04)
[2017-05-08] MEDS: ENOXAPARIN 100 MG/ML SYRINGE SUBCUT SCH ×2 (03:47→17:06)
[2017-05-08 04:06] LABS: INR 2.3
[2017-05-08 04:09] LABS: PT Patient Result 25.2 SECS
[2017-05-08] MEDS: INSULIN LISPRO 100 UNIT/ML SUBCUT SCH ×2 (09:12→17:07)
[2017-05-08] MEDS: GLIMEPIRIDE 2 MG TABLET PO SCH ×2 (09:14→20:13)
[2017-05-08] MEDS: QUEtiapine 25 MG TABLET PO SCH (09:14)
[2017-05-08] MEDS: metFORMIN 500 MG TABLET PO SCH ×2 (09:14→20:13)
[2017-05-08] MEDS: MEGESTROL 40 MG TABLET PO SCH (09:14)
[2017-05-08] MEDS: ROSUVASTATIN 10 MG TABLET PO SCH (09:14)
[2017-05-08] MEDS: PANTOPRAZOLE 40 MG TABLET PO SCH (09:14)
--- NOTE | 2017-05-08 10:20 | Discharge Summary ---
Hospital Course - Hospital Course Hospital Course: Ms. Gleason is a 76 year old -[place] female with history of dementia, diabetes, hypertension, and right lower extremity DVT on Coumadin presenting to the ED with a 3 day history of increasing right lower extremity pain and inability to walk. History taken from the patient, daughter and daughter-in- law at the bedside. Patient was previously admitted on 04/05/2017 with new onset right lower extremity DVT. She was bridged with Lovenox and Coumadin and discharged on 04/08/2017 on 3 mg of Coumadin daily with an INR of 3.1. Patient was to follow-up with Dr. Klein the PCP in 1 week for blood work. Daughter states that it was several days before they could get the Coumadin filled but they have been giving it to her since. No INR has been done since restarting the medicine. Patient and [id number] both state that starting Tuesday patient was not really wanting to stand up on the right leg. She was complaining of increasing pain. She denies blurry vision, fever, dysphagia, chest pain, shortness of breath, abdominal pain, or left lower extremity pain or edema. Patient is afebrile and vital signs are stable. H&H is up from previous admission to 06/26. but her INR is only 1.1. Remainder of her chemistry is basically normal. UA is negative along with CT of the head. Upon exam patient has no right lower extremity edema but she is tender to palpation from posterior distal thigh down to her ankle. She has normal motor function and sensation bilaterally. The patient was admitted to the hospitalist service and started on bridging therapy with subcutaneous Lovenox and Coumadin. Today her INR is therapeutic and she is ready for discharge home. She needs to follow-up with her primary care physician in 1 week. She should have a repeat INR done as an outpatient at that time. Primary care physician is listed as Dr. Klein in [place]. She is being discharged with new prescription for Coumadin 5 mg daily. It is imperative that she have this medication filled and takes it daily as prescribed. 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 (5) Dementia Status: Chronic Discharge Plan - Discharge Data Disposition: Disch To Home/Self Care Condition at Discharge: Stable Discharge Diet: advance to your usual diet Activity: resume usual activities as tolerated, as per physical therapy Hygiene: no restrictions Contact your physician if you experience:: fever over 101, Redness or swelling, Shortness of breath, Bleeding, pain uncontrolled by pain medications - Discharge Medications New Warfarin [Coumadin] 5 mg PO DAILY@1800 #30 tablet Continue RX: Famotidine Tab [Pepcid Tab] 20 mg PO BEDTIME RX: QUEtiapine [SEROquel] 25 mg PO QAM RX: Glimepiride 2 mg PO BID RX: Megestrol Acetate 40 mg PO DAILY RX: cloNIDine TAB [Catapres Tab] 0.2 mg PO BEDTIME PRN PRN Reason: Hypertension RX: Ferrous Sulfate Tab [Feosol Original Tab] 325 mg PO BEDTIME RX: Latanoprost [Latanoprost 0.005 % Oph Soln] 1 drops BOTH EYES BEDTIME RX: Verapamil HCl [Verapamil ER Cap] 240 mg PO BEDTIME PRN PRN Reason: Hypertension RX: Donepezil [Aricept] 10 mg PO BEDTIME RX: Rosuvastatin [Crestor] 10 mg PO DAILY RX: Metformin HCl [Glucophage] 1,000 mg PO BID Discontinued Warfarin [Coumadin] 1 mg PO DAILY@1800 - Follow Up or Referral - Forms/Instructions Instructions: Deep Venous Thrombosis (DC) Exam - Constitutional Vitals: Period Temp Pulse Resp BP Sys/Benavides Pulse Ox Last 24 Hr 96.9 F-98.3 F 80-103 18-22 131-183/65-86 96-100 Discharge Results Procedures and tests throughout hospitalization: Pending Orders 05/09/17 04:00 Prothrombin Time INR IN AM 05/10/17 04:00 Prothrombin Time INR IN AM 05/11/17 04:00 Prothrombin Time INR IN AM Labs on day of discharge: Labs from last 24 hours 05/08/17 05/08/17 05/07/17 07:35 02:04 16:04 INR 2.3 PT Patient/Control Mix 25.2 D POC Glucose 145 H 136 H 05/07/17 11:19 INR PT Patient/Control Mix POC Glucose 192 H DS: Provider Date of admission: 05/05/17 11:14 Primary care physician: Davin Klein M.D. Attending physician on admission: Jesus Srinivasan Consults: 05/05/17 14:17 Consult to [facility], Educator [CONS] Routine Reason for Health Informatics Specialist: Evaluate and Recommend Consult Comment: elevated HgbA1C Discharging clinician: Judd Crocker MD Expected date of discharge: 05/08/17
[2017-05-08] MEDS ORDERED: WARFARIN 5 MG TABLET ONE (16:51)
[2017-05-08] MEDS: WARFARIN 10 MG TABLET PO SCH (17:06)
[2017-05-08] MEDS: DONEPEZIL 10 MG TABLET PO SCH (20:13)
[2017-05-08] MEDS: FERROUS SULFATE 325 MG TABLET PO SCH (20:13)
[2017-05-08] MEDS: LATANOPROST 0.005% OPH SOLN 2.5 ML BOTTLE BOTH EYES SCH (20:15)
[2017-05-09] MEDS: ENOXAPARIN 100 MG/ML SYRINGE SUBCUT SCH (02:36)
[2017-05-09 06:09] LABS: INR 3.5
[2017-05-09 06:13] LABS: PT Patient Result 39.7 SECS
[2017-05-09] MEDS: GLIMEPIRIDE 2 MG TABLET PO SCH ×2 (08:42→21:37)
[2017-05-09] MEDS: ROSUVASTATIN 10 MG TABLET PO SCH (08:42)
[2017-05-09] MEDS: PANTOPRAZOLE 40 MG TABLET PO SCH (08:42)
[2017-05-09] MEDS: INSULIN LISPRO 100 UNIT/ML SUBCUT SCH ×2 (08:42→17:16)
[2017-05-09] MEDS: QUEtiapine 25 MG TABLET PO SCH (08:42)
[2017-05-09] MEDS: MEGESTROL 40 MG TABLET PO SCH (08:42)
[2017-05-09] MEDS: metFORMIN 500 MG TABLET PO SCH ×2 (08:42→21:38)
--- NOTE | 2017-05-09 12:41 | Hospitalist Progress Note ---
Assessment and Plan (1) Debility Status: Acute Assessment and plan: PT OT evaluation today. Referral for swing bed placement. The patient is unable to perform her ADLs independently. Current Visit: Yes (2) Chronic anticoagulation Status: Chronic Assessment and plan: On Coumadin. Subtherapeutic on admission. 05/09/17: Stop Lovenox. Hold Coumadin for today. Resume tomorrow at 5 mg daily. 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 Current Visit: No Qualifiers: Affected thrombotic vein of extremity: popliteal Chronicity: acute Laterality: right Qualified Code(s): I82.431 - Acute embolism and thrombosis of right popliteal vein (6) Dementia Status: Chronic Current Visit: Yes Qualifiers: Dementia type: Alzheimer's disease Alzheimer's disease onset: unspecified onset Dementia behavioral disturbance: with behavioral disturbance Qualified Code(s): G30.8 - Other Alzheimer's disease; F02.81 - Dementia in other diseases classified elsewhere with behavioral disturbance Hospitalist: Subjective Interval history: Patient seen and examined. No acute events overnight. Case discussed with nursing staff. Labs reviewed. The patient is awaiting swing bed evaluation and transfer. Physical therapy and outpatient therapy consults placed. Case discussed with patient's daughter at the bedside. The patient reports improvement in her lower extremity pain. INR is 3.2 this morning. Coumadin will be held today. Subcu Lovenox discontinued. Exam - Constitutional Vitals: Period Temp Pulse Resp BP Sys/Benavides Pulse Ox Last 24 Hr 97.4 F-98.1 F 90-100 16-20 135-178/66-82 97-100 Exam: Constitutional System: No distress. No tremulousness. Head: Normocephalic, atraumatic. Ears, Nose and Throat System: No pain or tenderness. No epistaxis or discharge Eyes System: Pupils equal, round, and reactive. Extraocular muscles intact. Neck: Supple, without adenopathy, No jugular venous distention. No thyromegaly, neck mass, or prior surgery apparent. Respiratory System: Chest clear to auscultation. Cardiovascular System: Heart with regular rate and rhythm. No murmur. GI System: Abdomen soft, nontender. Normo active bowel sounds present. Musculoskeletal System: Right lower extremity with pedal edema. Full distal pulses. Normal capillary refill. Results - Labs CBC & BMP: 05/06/17 04:23 05/07/17 05:35 Lab Results: I have reviewed the past 24 hour labs Quality Measures - VTE Contraindication to Mechanical VTE Prophylaxis: Current Diagnosis of DVT Specialty Discharge - Follow Up or Referrals
[2017-05-09] MEDS: DONEPEZIL 10 MG TABLET PO SCH (21:35)
[2017-05-09] MEDS: FERROUS SULFATE 325 MG TABLET PO SCH (21:37)
[2017-05-09] MEDS: LATANOPROST 0.005% OPH SOLN 2.5 ML BOTTLE BOTH EYES SCH (21:58)
[2017-05-10 06:17] LABS: Basophils % 0.3 % (0.0-0.8); Eosinophils # 0.6 10*3/uL (0.0-0.87); Eosinophils % 8.6 % (0.00-10.9); Hematocrit 27.7 VOL% (35.7-47.0); Hemoglobin 9.2 GM/DL (12.0-16.0); Immature Granulocytes % 0.3 %; Immature Granulocytes Absolute 0.02 #; Lymphocytes # 1.7 10*3/uL (1.4-4.0); Lymphocytes % 26.5 % (21.3-54.2); Mean Corpuscular HGB Conc 33.2 GM/DL (32-36); Mean Corpuscular Hemoglobin 29 PG (27-34); Mean Corpuscular Volume 87.1 FL (87-102); Mean Platelet Volume 9.1 FL (9.6-12.0); Monocytes # 0.4 10*3/uL (0.11-0.8); Monocytes % 6.3 % (1.7-12.7); Neutrophils # 3.8 10*3/uL (1.4-7.4); Platelet Count 405 T/CUMM (130-400); Red Blood Count 3.18 MC/CUMM (3.8-5.5); Red Cell Distribution Width 14.5 % (9.3-17.3); White Blood Count 6.5 T/CUMM (4-12)
[2017-05-10 06:31] LABS: INR 2.9
[2017-05-10 06:37] LABS: PT Patient Result 32.4 SECS
[2017-05-10 06:56] LABS: Calcium 9.4 MG/DL (8.5-10.1); Magnesium 1.9 MG/DL (1.8-2.4); Osmolality,Calculated 284.3 MOS/KG (273-304); Potassium 3.5 MMOL/L (3.5-5.1)
[2017-05-10] MEDS: GLIMEPIRIDE 2 MG TABLET PO SCH ×2 (09:02→23:02)
[2017-05-10] MEDS: PANTOPRAZOLE 40 MG TABLET PO SCH (09:02)
[2017-05-10] MEDS: ROSUVASTATIN 10 MG TABLET PO SCH (09:02)
[2017-05-10] MEDS: QUEtiapine 25 MG TABLET PO SCH (09:02)
[2017-05-10] MEDS: metFORMIN 500 MG TABLET PO SCH ×2 (09:02→23:03)
[2017-05-10] MEDS: MEGESTROL 40 MG TABLET PO SCH (09:02)
[2017-05-10] MEDS: INSULIN LISPRO 100 UNIT/ML SUBCUT SCH ×3 (09:03→16:57)
--- NOTE | 2017-05-10 12:06 | Hospitalist Progress Note ---
Assessment and Plan (1) Debility Status: Acute Assessment and plan: Continue physical therapy and Occupational Therapy. Referral for swing bed placement. The patient is unable to perform her ADLs independently. Current Visit: Yes (2) Chronic anticoagulation Status: Chronic Assessment and plan: On Coumadin. Subtherapeutic on admission. 05/10/17: Resume Coumadin at 5 mg daily. 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 Current Visit: No Qualifiers: Affected thrombotic vein of extremity: popliteal Chronicity: acute Laterality: right Qualified Code(s): I82.431 - Acute embolism and thrombosis of right popliteal vein (6) Dementia Status: Chronic Current Visit: Yes Qualifiers: Dementia type: Alzheimer's disease Alzheimer's disease onset: unspecified onset Dementia behavioral disturbance: with behavioral disturbance Qualified Code(s): G30.8 - Other Alzheimer's disease; F02.81 - Dementia in other diseases classified elsewhere with behavioral disturbance Hospitalist: Subjective Interval history: Patient seen and examined. No acute events overnight. Case discussed with nursing staff. Labs reviewed. INR 2.9 Awaiting insurance approval for swing bed Exam - Constitutional Vitals: Period Temp Pulse Resp BP Sys/Benavides Pulse Ox Last 24 Hr 96.7 F-97.6 F 92-108 16-20 154-181/74-87 92-100 Exam: Constitutional System: No distress. No tremulousness. Head: Normocephalic, atraumatic. Ears, Nose and Throat System: No pain or tenderness. No epistaxis or discharge Eyes System: Pupils equal, round, and reactive. Extraocular muscles intact. Neck: Supple, without adenopathy, No jugular venous distention. No thyromegaly, neck mass, or prior surgery apparent. Respiratory System: Chest clear to auscultation. Cardiovascular System: Heart with regular rate and rhythm. No murmur. GI System: Abdomen soft, nontender. Normo active bowel sounds present. Musculoskeletal System: Right lower extremity with pedal edema. Full distal pulses. Normal capillary refill. Results - Labs CBC & BMP: 05/10/17 04:40 05/10/17 04:40 Lab Results: I have reviewed the past 24 hour labs Quality Measures - VTE Contraindication to Mechanical VTE Prophylaxis: Current Diagnosis of DVT Specialty Discharge - Follow Up or Referrals
[2017-05-10] MEDS ORDERED: WARFARIN 5 MG TABLET PO SCH (18:00)
[2017-05-10] MEDS: FERROUS SULFATE 325 MG TABLET PO SCH (23:02)
[2017-05-10] MEDS: DONEPEZIL 10 MG TABLET PO SCH (23:02)
[2017-05-10] MEDS: LATANOPROST 0.005% OPH SOLN 2.5 ML BOTTLE BOTH EYES SCH (23:35)
[2017-05-10] MEDS: ZINC OXIDE PASTE 113 GM TUBE TOP SCH (23:56)
[2017-05-11 05:24] LABS: INR 2.9; PT Patient Result 32.3 SECS
[2017-05-11] MEDS: ZINC OXIDE PASTE 113 GM TUBE TOP SCH (08:41)
[2017-05-11] MEDS: metFORMIN 500 MG TABLET PO SCH (08:41)
[2017-05-11] MEDS: MEGESTROL 40 MG TABLET PO SCH (08:41)
[2017-05-11] MEDS: GLIMEPIRIDE 2 MG TABLET PO SCH (08:41)
[2017-05-11] MEDS: INSULIN LISPRO 100 UNIT/ML SUBCUT SCH (08:41)
[2017-05-11] MEDS: ROSUVASTATIN 10 MG TABLET PO SCH (08:41)
[2017-05-11] MEDS: QUEtiapine 25 MG TABLET PO SCH (08:41)
[2017-05-11] MEDS: PANTOPRAZOLE 40 MG TABLET PO SCH (08:41)
[2017-05-11] MEDS ORDERED: TUBERCULIN SKIN TEST 0.1 ML SYRINGE INTRADERM ONE (09:09)
--- NOTE | 2017-05-11 09:11 | Case Mgmt Physician Query Form ---
TB Signs and Symptoms Screening ([place]) INSTRUCTIONS: To be completed annually on residents/staff with a significant Tuberculin Skin Test (TST) upon admission/hire or a prior significant TST. To be completed on all staff at hire. Please respond to each listed symptom with an (X) in either the "YES" or "NO" box. Do you currently have any of the following symptoms: YES NO ( ) (x ) A cough If yes, is it: ( ) Productive ( ) Non- productive ( ) (x ) Hemoptysis (spitting up blood) ( ) (x ) Chest pains ( ) (x ) Weight Loss ( ) (x ) Fever ( ) (x ) Night Sweats ( ) (x ) Weakness ( ) (x ) Loss of Appetite ( ) (x ) Difficulty Breathing If you answered YES" to any of the above questions, how long have symptoms been present? Comments: GIL
[2017-05-11 13:17] VITALS: BP 165/76
== END 2017-05-11 14:22 | disposition home health service (06) | DRG 300 ==
LOC: N.ED 08:20 → SUATTDRO 11:14 → N.EDINP 11:14 → N.4E 14:46
PROVIDERS: ATTEND Family Medicine

== ENCOUNTER 2017-08-11 18:19 | Inpatient (IN) ==
[2017-08-11 19:57] LABS: Basophils % 0.5 % (0.0-0.8); Eosinophils # 0.1 10*3/uL (0.0-0.87); Eosinophils % 1.1 % (0.00-10.9); Hematocrit 30.6 VOL% (35.7-47.0); Hemoglobin 10.3 GM/DL (12.0-16.0); Immature Granulocytes % 0.6 %; Immature Granulocytes Absolute 0.04 #; Lymphocytes # 2.3 10*3/uL (1.4-4.0); Lymphocytes % 37.2 % (21.3-54.2); Mean Corpuscular HGB Conc 33.7 GM/DL (32-36); Mean Corpuscular Hemoglobin 29 PG (27-34); Mean Corpuscular Volume 87.4 FL (87-102); Mean Platelet Volume 9.1 FL (9.6-12.0); Monocytes # 0.4 10*3/uL (0.11-0.8); Monocytes % 6.9 % (1.7-12.7); Neutrophils # 3.3 10*3/uL (1.4-7.4); Neutrophils % 53.7 % (38.7-73.9); Platelet Count 437 T/CUMM (130-400); Red Cell Distribution Width 16.1 % (9.3-17.3); White Blood Count 6.2 T/CUMM (4-12)
[2017-08-11 20:10] LABS: Albumin 4.4 G/DL (3.4-5.0); Bilirubin,Total 0.4 MG/DL (0.2-1.0); Calcium 10.5 MG/DL (8.5-10.1); INR 1.2; Osmolality,Calculated 287.8 MOS/KG (273-304); Potassium 4.1 MMOL/L (3.5-5.1); Total Protein 8.6 G/DL (6.4-8.3)
[2017-08-11 20:15] LABS: Apearance,Urine Slightly Hazy (Clear); Bacteria,Urine Occasional /HPF (Few); Blood, Urine Negative (Negative); Glucose,Urine (UA) Negative (Negative); Hyaline Casts,Urine 64 /LPF (0-3); Ketones,Urine 5 mg/dL (Negative); Mucus,Urine Occasional /LPF (Occasional); Nitrite,Urine Negative (Negative); Protein,Urine 30 MG/DL; RBC,Urine 1 /HPF (0-4); Squamous Epithelial Cell,Urine Occasional /HPF (0-10); Urine Color Amber (Yellow); Urine Specific Gravity 1.027 (1.001-1.035); WBC,Urine 2 /HPF (0-6)
[2017-08-11 20:18] LABS: Bilirubin,Urine Small mg/dL (Negative)
[2017-08-11] MEDS ORDERED: SODIUM CHLORIDE 0.9% 1,000 ML IV STA (20:57)
[2017-08-11] MEDS ORDERED: PANTOPRAZOLE 40 MG VIAL IV STA (20:57)
[2017-08-11] MEDS ORDERED: VERAPAMIL SR 240 MG TABLET PO PRN (21:37)
[2017-08-11] MEDS ORDERED: ALBUTEROL/IPRATROPIUM 3 ML NEB RESP TX PRN (21:37)
[2017-08-11] MEDS ORDERED: DEXTROSE 50% 25 GM/50 ML VIAL IV PRN (21:57)
[2017-08-11] MEDS ORDERED: GLUCAGON 1 MG VIAL IM PRN (21:57)
[2017-08-11] MEDS: MORPHINE 2 MG/1 ML SYRINGE IV PRN (23:34)
[2017-08-11] MEDS: SODIUM CHLORIDE 0.45% 1,000 ML IV SCH (23:46)
[2017-08-12] MEDS ORDERED: INFLUENZA VIRUS VACCINE 0.5 ML SYRINGE IM ONE (00:10)
[2017-08-12 00:23] LABS: Hematocrit 28.4 VOL% (35.7-47.0); Hemoglobin 9.3 GM/DL (12.0-16.0)
[2017-08-12] MEDS ORDERED: HALOPERIDOL 5 MG/ML AMP IV ONE (03:54)
[2017-08-12 04:48] LABS: Basophils # 0.1 10*3/uL (0.0-0.2); Basophils % 0.6 % (0.0-0.8); Eosinophils # 0.1 10*3/uL (0.0-0.87); Eosinophils % 1.7 % (0.00-10.9); Hemoglobin 8.9 GM/DL (12.0-16.0); Immature Granulocytes % 0.4 %; Immature Granulocytes Absolute 0.03 #; Lymphocytes # 3.2 10*3/uL (1.4-4.0); Mean Corpuscular Hemoglobin 29 PG (27-34); Mean Corpuscular Volume 87.9 FL (87-102); Mean Platelet Volume 9.5 FL (9.6-12.0); Monocytes # 0.6 10*3/uL (0.11-0.8); Monocytes % 7.4 % (1.7-12.7); NRBC # 0.02 10*3/uL; Neutrophils # 3.9 10*3/uL (1.4-7.4); Neutrophils % 49.9 % (38.7-73.9); Platelet Count 422 T/CUMM (130-400); Red Blood Count 3.07 MC/CUMM (3.8-5.5); Red Cell Distribution Width 16.3 % (9.3-17.3); White Blood Count 7.9 T/CUMM (4-12)
[2017-08-12 05:16] LABS: Calcium 9.7 MG/DL (8.5-10.1); Osmolality,Calculated 288.5 MOS/KG (273-304); Potassium 4.1 MMOL/L (3.5-5.1)
[2017-08-12] MEDS: INSULIN LISPRO 100 UNIT/ML SUBCUT SCH ×4 (08:15→20:47)
[2017-08-12] MEDS ORDERED: MEGESTROL 40 MG TABLET PO SCH (09:00)
[2017-08-12] MEDS: SODIUM CHLORIDE 0.45% 1,000 ML IV SCH ×3 (09:21→20:38)
[2017-08-12] MEDS: LISINOPRIL/HCTZ 20-12.5 MG TABLET PO SCH (09:22)
[2017-08-12] MEDS: QUEtiapine 25 MG TABLET PO SCH (09:22)
[2017-08-12] MEDS: PANTOPRAZOLE 40 MG VIAL IV SCH ×2 (09:22→20:34)
[2017-08-12] MEDS: ROSUVASTATIN 10 MG TABLET PO SCH (09:22)
[2017-08-12] MEDS: MORPHINE 2 MG/1 ML SYRINGE IV PRN (12:46)
[2017-08-12 13:27] LABS: Hematocrit 26.4 VOL% (35.7-47.0); Hemoglobin 8.7 GM/DL (12.0-16.0)
[2017-08-12] MEDS: DONEPEZIL 10 MG TABLET PO SCH (20:45)
[2017-08-12] MEDS: FERROUS SULFATE 325 MG TABLET PO SCH (20:46)
[2017-08-12] MEDS: LATANOPROST 0.005% OPH SOLN 2.5 ML BOTTLE BOTH EYES SCH (20:47)
[2017-08-12] MEDS ORDERED: FAMOTIDINE 20 MG TABLET PO SCH (21:00)
[2017-08-13] MEDS: SODIUM CHLORIDE 0.45% 1,000 ML IV SCH ×3 (04:45→22:03)
[2017-08-13 07:25] LABS: Basophils % 0.5 % (0.0-0.8); Eosinophils # 0.2 10*3/uL (0.0-0.87); Eosinophils % 3.4 % (0.00-10.9); Hematocrit 26.3 VOL% (35.7-47.0); Hemoglobin 8.9 GM/DL (12.0-16.0); Immature Granulocytes % 0.3 %; Immature Granulocytes Absolute 0.02 #; Lymphocytes # 2.2 10*3/uL (1.4-4.0); Lymphocytes % 36.9 % (21.3-54.2); Mean Corpuscular HGB Conc 33.8 GM/DL (32-36); Mean Corpuscular Hemoglobin 29 PG (27-34); Mean Corpuscular Volume 86.5 FL (87-102); Mean Platelet Volume 9.1 FL (9.6-12.0); Monocytes # 0.4 10*3/uL (0.11-0.8); Monocytes % 6.9 % (1.7-12.7); NRBC # 0.06 10*3/uL; Neutrophils # 3.1 10*3/uL (1.4-7.4); Platelet Count 371 T/CUMM (130-400); Red Blood Count 3.04 MC/CUMM (3.8-5.5); Red Cell Distribution Width 15.9 % (9.3-17.3); White Blood Count 5.9 T/CUMM (4-12)
[2017-08-13] MEDS: INSULIN LISPRO 100 UNIT/ML SUBCUT SCH ×4 (08:56→22:04)
[2017-08-13] MEDS: QUEtiapine 25 MG TABLET PO SCH (09:01)
[2017-08-13] MEDS: PANTOPRAZOLE 40 MG VIAL IV SCH ×2 (09:01→21:58)
[2017-08-13] MEDS: LISINOPRIL/HCTZ 20-12.5 MG TABLET PO SCH (09:01)
[2017-08-13] MEDS: MORPHINE 2 MG/1 ML SYRINGE IV PRN (09:03)
[2017-08-13] MEDS: ROSUVASTATIN 10 MG TABLET PO SCH (10:27)
[2017-08-13] MEDS: LATANOPROST 0.005% OPH SOLN 2.5 ML BOTTLE BOTH EYES SCH (21:57)
[2017-08-13] MEDS: FERROUS SULFATE 325 MG TABLET PO SCH ×2 (21:57→22:27)
[2017-08-13] MEDS: DONEPEZIL 10 MG TABLET PO SCH ×2 (21:57→22:28)
[2017-08-14] MEDS: SODIUM CHLORIDE 0.45% 1,000 ML IV SCH ×3 (05:09→21:21)
[2017-08-14 06:20] LABS: Basophils % 0.2 % (0.0-0.8); Eosinophils # 0.1 10*3/uL (0.0-0.87); Eosinophils % 2.7 % (0.00-10.9); Hematocrit 23.8 VOL% (35.7-47.0); Hemoglobin 8.1 GM/DL (12.0-16.0); Immature Granulocytes % 0.4 %; Immature Granulocytes Absolute 0.02 #; Lymphocytes # 1.7 10*3/uL (1.4-4.0); Lymphocytes % 33.9 % (21.3-54.2); Mean Corpuscular Hemoglobin 30 PG (27-34); Mean Corpuscular Volume 86.5 FL (87-102); Mean Platelet Volume 9.2 FL (9.6-12.0); Monocytes # 0.3 10*3/uL (0.11-0.8); Monocytes % 6.5 % (1.7-12.7); Neutrophils # 2.9 10*3/uL (1.4-7.4); Neutrophils % 56.3 % (38.7-73.9); Platelet Count 353 T/CUMM (130-400); Red Blood Count 2.75 MC/CUMM (3.8-5.5); Red Cell Distribution Width 15.9 % (9.3-17.3); White Blood Count 5.1 T/CUMM (4-12)
[2017-08-14 07:05] LABS: Calcium 9.3 MG/DL (8.5-10.1); Potassium 3.7 MMOL/L (3.5-5.1)
[2017-08-14] MEDS: INSULIN LISPRO 100 UNIT/ML SUBCUT SCH ×3 (09:01→17:57)
[2017-08-14] MEDS: PANTOPRAZOLE 40 MG VIAL IV SCH ×2 (09:03→21:07)
[2017-08-14] MEDS ORDERED: SODIUM CHLORIDE 0.9% 1,000 ML IV PRN (13:13)
[2017-08-14] MEDS ORDERED: FUROSEMIDE 20 MG/2 ML VIAL IV PRN (13:13)
[2017-08-14] MEDS: ROSUVASTATIN 10 MG TABLET PO SCH (16:00)
[2017-08-14] MEDS: QUEtiapine 25 MG TABLET PO SCH (16:00)
[2017-08-14] MEDS: LISINOPRIL/HCTZ 20-12.5 MG TABLET PO SCH (16:00)
[2017-08-14] MEDS ORDERED: ALBUTEROL/IPRATROPIUM 3 ML NEB RESP TX SCH ×2 (16:12→19:00)
[2017-08-14] MEDS: ALBUTEROL/IPRATROPIUM 3 ML NEB RESP TX SCH ×2 (16:41→19:56)
[2017-08-14] MEDS: DONEPEZIL 10 MG TABLET PO SCH (21:04)
[2017-08-14] MEDS: FERROUS SULFATE 325 MG TABLET PO SCH (21:04)
[2017-08-14] MEDS: LATANOPROST 0.005% OPH SOLN 2.5 ML BOTTLE BOTH EYES SCH (21:22)
[2017-08-15] MEDS: ALBUTEROL/IPRATROPIUM 3 ML NEB RESP TX SCH ×4 (00:07→20:19)
[2017-08-15] MEDS: INSULIN LISPRO 100 UNIT/ML SUBCUT SCH ×5 (02:41→21:11)
[2017-08-15] MEDS ORDERED: SODIUM CHLORIDE 0.9% 1,000 ML IV PRN (04:11)
[2017-08-15 04:54] LABS: Basophils % 0.4 % (0.0-0.8); Eosinophils # 0.1 10*3/uL (0.0-0.87); Eosinophils % 2.9 % (0.00-10.9); Hematocrit 23.9 VOL% (35.7-47.0); Immature Granulocytes % 0.2 %; Immature Granulocytes Absolute 0.01 #; Lymphocytes # 1.5 10*3/uL (1.4-4.0); Lymphocytes % 31.5 % (21.3-54.2); Mean Corpuscular HGB Conc 33.5 GM/DL (32-36); Mean Corpuscular Hemoglobin 29 PG (27-34); Mean Corpuscular Volume 87.5 FL (87-102); Mean Platelet Volume 9.5 FL (9.6-12.0); Monocytes # 0.4 10*3/uL (0.11-0.8); Monocytes % 7.8 % (1.7-12.7); Neutrophils # 2.7 10*3/uL (1.4-7.4); Neutrophils % 57.2 % (38.7-73.9); Platelet Count 334 T/CUMM (130-400); Red Blood Count 2.73 MC/CUMM (3.8-5.5); White Blood Count 4.8 T/CUMM (4-12)
[2017-08-15 05:28] LABS: Calcium 9.1 MG/DL (8.5-10.1); Osmolality,Calculated 273.8 MOS/KG (273-304); Potassium 3.3 MMOL/L (3.5-5.1)
[2017-08-15] MEDS ORDERED: ceFAZolin 1,000 MG in SYRINGE 1 EACH IV ONE (07:00)
[2017-08-15] MEDS ORDERED: FUROSEMIDE 20 MG/2 ML VIAL IV ONE (09:34)
[2017-08-15] MEDS ORDERED: POTASSIUM CHLORIDE 20 MEQ TABLET PO ONE (10:57)
[2017-08-15] MEDS: SODIUM CHLORIDE 0.45% 1,000 ML IV SCH ×3 (11:03→22:14)
[2017-08-15] MEDS: QUEtiapine 25 MG TABLET PO SCH (11:04)
[2017-08-15] MEDS: LISINOPRIL/HCTZ 20-12.5 MG TABLET PO SCH (11:04)
[2017-08-15] MEDS: ROSUVASTATIN 10 MG TABLET PO SCH (11:05)
[2017-08-15] MEDS: PANTOPRAZOLE 40 MG VIAL IV SCH ×2 (11:40→21:02)
[2017-08-15] MEDS ORDERED: LIDOCAINE 100 MG/5 ML SYRINGE ONE (12:05)
[2017-08-15] MEDS ORDERED: PROPOFOL 200 MG/20 ML VIAL IV ONE ×2 (12:05→14:34)
[2017-08-15] MEDS ORDERED: LIDOCAINE 2% 5 ML VIAL ONE (14:34)
[2017-08-15] MEDS: FERROUS SULFATE 325 MG TABLET PO SCH (21:03)
[2017-08-15] MEDS: LATANOPROST 0.005% OPH SOLN 2.5 ML BOTTLE BOTH EYES SCH (21:03)
[2017-08-15] MEDS: DONEPEZIL 10 MG TABLET PO SCH (21:03)
[2017-08-16] MEDS: ALBUTEROL/IPRATROPIUM 3 ML NEB RESP TX SCH ×4 (00:15→19:50)
[2017-08-16 06:17] LABS: Calcium 8.6 MG/DL (8.5-10.1)
[2017-08-16 06:42] LABS: Magnesium 1.5 MG/DL (1.8-2.4); Phosphorous 2.9 MG/DL (2.5-4.9); Prealbumin 11.1 MG/DL (20-40)
[2017-08-16] MEDS: SODIUM CHLORIDE 0.45% 1,000 ML IV SCH (06:58)
[2017-08-16 07:37] LABS: Basophils % 0.2 % (0.0-0.8); Eosinophils # 0.2 10*3/uL (0.0-0.87); Eosinophils % 3.6 % (0.00-10.9); Hematocrit 29.4 VOL% (35.7-47.0); Immature Granulocytes % 0.3 %; Immature Granulocytes Absolute 0.02 #; Lymphocytes # 1.8 10*3/uL (1.4-4.0); Lymphocytes % 28.3 % (21.3-54.2); Mean Corpuscular Hemoglobin 29 PG (27-34); Mean Corpuscular Volume 81.9 FL (87-102); Monocytes # 0.4 10*3/uL (0.11-0.8); Monocytes % 5.7 % (1.7-12.7); Neutrophils # 3.9 10*3/uL (1.4-7.4); Neutrophils % 61.9 % (38.7-73.9); Platelet Count 294 T/CUMM (130-400); Red Cell Distribution Width 17.4 % (9.3-17.3)
[2017-08-16 08:06] LABS: Hemoglobin 10.3 GM/DL (12.0-16.0); Red Blood Count 3.59 MC/CUMM (3.8-5.5); White Blood Count 6.4 T/CUMM (4-12)
[2017-08-16] MEDS ORDERED: POTASSIUM CHLORIDE 20 MEQ TABLET PO ONE (08:27)
[2017-08-16] MEDS ORDERED: MAGNESIUM SULF RIDER 2 GM in PREMIX 1 EACH IV ONE (08:28)
[2017-08-16] MEDS: INSULIN LISPRO 100 UNIT/ML SUBCUT SCH ×4 (08:44→20:32)
[2017-08-16] MEDS: PANTOPRAZOLE 40 MG VIAL IV SCH ×2 (08:52→20:32)
[2017-08-16] MEDS: ROSUVASTATIN 10 MG TABLET PO SCH (08:52)
[2017-08-16] MEDS: QUEtiapine 25 MG TABLET PO SCH (08:52)
[2017-08-16] MEDS: LISINOPRIL/HCTZ 20-12.5 MG TABLET PO SCH (08:52)
[2017-08-16] MEDS: MULTIVITAMIN LIQUID (CENTRUM) 60 ML BOTTLE PEG SCH (08:53)
[2017-08-16] MEDS: LATANOPROST 0.005% OPH SOLN 2.5 ML BOTTLE BOTH EYES SCH (20:32)
[2017-08-16] MEDS: DONEPEZIL 10 MG TABLET PO SCH (20:32)
[2017-08-16] MEDS: FERROUS SULFATE 325 MG TABLET PO SCH (20:32)
[2017-08-17] MEDS: ALBUTEROL/IPRATROPIUM 3 ML NEB RESP TX SCH ×2 (00:27→07:47)
[2017-08-17 05:09] LABS: Calcium 9.2 MG/DL (8.5-10.1); Osmolality,Calculated 275.7 MOS/KG (273-304); Potassium 3.5 MMOL/L (3.5-5.1)
[2017-08-17] MEDS: LISINOPRIL/HCTZ 20-12.5 MG TABLET PO SCH (09:09)
[2017-08-17] MEDS: ROSUVASTATIN 10 MG TABLET PO SCH (09:09)
[2017-08-17] MEDS: QUEtiapine 25 MG TABLET PO SCH (09:09)
[2017-08-17] MEDS: PANTOPRAZOLE 40 MG VIAL IV SCH (09:10)
[2017-08-17] MEDS: INSULIN LISPRO 100 UNIT/ML SUBCUT SCH ×2 (09:16→13:45)
[2017-08-17] MEDS: MULTIVITAMIN LIQUID (CENTRUM) 60 ML BOTTLE PEG SCH (09:19)
[2017-08-17 12:10] VITALS: BP 97/50
== END 2017-08-17 13:45 | disposition home health service (06) | DRG 378 ==
LOC: EDBD → EDUNIT# → N.ED 18:19 → SUATTDRO 21:30 → N.EDINP 21:30 → N.TELEN 22:46
PROVIDERS: ADMIT Hospitalist; ATTEND Internal Medicine
PROC: EGDWPEG (ICD-10-PCS; 2017-08-15 07:35)

== ENCOUNTER 2017-10-25 18:59 | Inpatient (IN) ==
[2017-10-25 20:42] LABS: Basophils % 0.5 % (0.0-0.8); Eosinophils # 0.2 10*3/uL (0.0-0.87); Eosinophils % 2.5 % (0.00-10.9); Hematocrit 29.5 VOL% (35.7-47.0); Hemoglobin 9.9 GM/DL (12.0-16.0); Immature Granulocytes % 0.7 %; Immature Granulocytes Absolute 0.04 #; Lymphocytes # 1.8 10*3/uL (1.4-4.0); Lymphocytes % 29.7 % (21.3-54.2); Mean Corpuscular HGB Conc 33.6 GM/DL (32-36); Mean Corpuscular Hemoglobin 28 PG (27-34); Mean Corpuscular Volume 83.1 FL (87-102); Mean Platelet Volume 8.5 FL (9.6-12.0); Monocytes # 0.6 10*3/uL (0.11-0.8); Monocytes % 10.1 % (1.7-12.7); Neutrophils # 3.4 10*3/uL (1.4-7.4); Neutrophils % 56.5 % (38.7-73.9); Platelet Count 451 T/CUMM (130-400); Red Blood Count 3.55 MC/CUMM (3.8-5.5); Red Cell Distribution Width 15.5 % (9.3-17.3)
[2017-10-25 21:00] LABS: Albumin 3.6 G/DL (3.4-5.0); Bilirubin,Total 0.5 MG/DL (0.2-1.0); Calcium 11.9 MG/DL (8.5-10.1); Osmolality,Calculated 281.4 MOS/KG (273-304); Potassium 3.8 MMOL/L (3.5-5.1); Total Protein 7.7 G/DL (6.4-8.3)
[2017-10-25] MEDS ORDERED: ACETAMINOPHEN 325 MG TABLET PO PRN (21:52)
[2017-10-25] MEDS ORDERED: ONDANSETRON 4 MG/2 ML VIAL IV PRN (21:52)
[2017-10-25] MEDS ORDERED: traMADol 50 MG TABLET PEG PRN (21:55)
[2017-10-25] MEDS ORDERED: LORAZEPAM PEG PRN (21:55)
[2017-10-25] MEDS ORDERED: MORPHINE SULFATE PEG PRN (21:55)
[2017-10-25] MEDS: SODIUM CHLORIDE 0.9% 1,000 ML IV SCH (22:20)
[2017-10-25] MEDS ORDERED: GLUCAGON 1 MG VIAL IM PRN (22:44)
[2017-10-25] MEDS ORDERED: DEXTROSE 50% 25 GM/50 ML VIAL IV PRN (22:44)
[2017-10-26 05:57] LABS: Basophils % 0.5 % (0.0-0.8); Eosinophils # 0.2 10*3/uL (0.0-0.87); Eosinophils % 2.3 % (0.00-10.9); Hematocrit 28.9 VOL% (35.7-47.0); Hemoglobin 9.7 GM/DL (12.0-16.0); Immature Granulocytes % 0.3 %; Immature Granulocytes Absolute 0.02 #; Lymphocytes # 2.3 10*3/uL (1.4-4.0); Lymphocytes % 34.8 % (21.3-54.2); Mean Corpuscular HGB Conc 33.6 GM/DL (32-36); Mean Corpuscular Hemoglobin 28 PG (27-34); Mean Corpuscular Volume 83.3 FL (87-102); Monocytes # 0.6 10*3/uL (0.11-0.8); Monocytes % 8.7 % (1.7-12.7); Neutrophils # 3.5 10*3/uL (1.4-7.4); Neutrophils % 53.4 % (38.7-73.9); Platelet Count 476 T/CUMM (130-400); Red Blood Count 3.47 MC/CUMM (3.8-5.5); Red Cell Distribution Width 15.7 % (9.3-17.3); White Blood Count 6.5 T/CUMM (4-12)
[2017-10-26] MEDS: SODIUM CHLORIDE 0.9% 1,000 ML IV SCH (06:36)
[2017-10-26 06:42] LABS: Calcium 11.8 MG/DL (8.5-10.1); Potassium 3.9 MMOL/L (3.5-5.1)
[2017-10-26] MEDS ORDERED: ALBUTEROL/IPRATROPIUM 3 ML NEB RESP TX PRN (07:00)
[2017-10-26] MEDS ORDERED: PANTOPRAZOLE 40 MG TABLET PO SCH (09:00)
[2017-10-26] MEDS ORDERED: LISINOPRIL/HCTZ 20-12.5 MG TABLET PEG SCH (09:00)
[2017-10-26] MEDS: INSULIN REGULAR 100 UNIT/ML SUBCUT SCH ×3 (11:43→22:40)
[2017-10-26] MEDS: PANTOPRAZOLE 40 MG VIAL IV SCH ×2 (12:20→20:59)
[2017-10-26] MEDS: ERTAPENEM 1,000 MG in SODIUM CHLORIDE 0.9% 100 ML IV SCH (12:24)
[2017-10-26] MEDS ORDERED: FAT EMULSION 20% 250 ML IV SCH (14:00)
[2017-10-26] MEDS ORDERED: ZINC OXIDE PASTE 113 GM TUBE TOP PRN (15:23)
[2017-10-26] MEDS: MORPHINE 2 MG/1 ML SYRINGE IV PRN (17:03)
[2017-10-26] MEDS: TRACE ELEMENTS (5) 1 ML, MULTIVITAMIN INJ 10 ML in AMINO ACIDS/DEXT/LYTES 4.25-5% 2,000 ML IV SCH (17:06)
[2017-10-26] MEDS: LABETALOL 20 MG/4 ML SYRINGE IV PRN (18:21)
[2017-10-26] MEDS: GENTAMICIN 0.3% OPH SOLN 5 ML BOTTLE RIGHT EYE SCH ×2 (18:27→21:05)
[2017-10-26] MEDS ORDERED: FAMOTIDINE 20 MG TABLET PEG SCH (21:00)
[2017-10-26] MEDS: LATANOPROST 0.005% OPH SOLN 2.5 ML BOTTLE BOTH EYES SCH (21:05)
[2017-10-26] MEDS: VERAPAMIL SR 240 MG TABLET PO SCH (21:08)
[2017-10-26] MEDS: DONEPEZIL 10 MG TABLET PEG SCH (21:08)
[2017-10-26] MEDS: ATORVASTATIN 40 MG TABLET PEG SCH (21:09)
[2017-10-27] MEDS: GENTAMICIN 0.3% OPH SOLN 5 ML BOTTLE RIGHT EYE SCH ×6 (04:10→22:35)
[2017-10-27 05:39] LABS: Basophils % 0.4 % (0.0-0.8); Eosinophils # 0.2 10*3/uL (0.0-0.87); Eosinophils % 4.7 % (0.00-10.9); Hematocrit 25.7 VOL% (35.7-47.0); Hemoglobin 8.5 GM/DL (12.0-16.0); Immature Granulocytes % 0.6 %; Immature Granulocytes Absolute 0.03 #; Lymphocytes # 1.5 10*3/uL (1.4-4.0); Lymphocytes % 29.7 % (21.3-54.2); Mean Corpuscular HGB Conc 33.1 GM/DL (32-36); Mean Corpuscular Hemoglobin 28 PG (27-34); Mean Corpuscular Volume 84.8 FL (87-102); Monocytes # 0.5 10*3/uL (0.11-0.8); Monocytes % 9.7 % (1.7-12.7); Neutrophils # 2.8 10*3/uL (1.4-7.4); Neutrophils % 54.9 % (38.7-73.9); Platelet Count 414 T/CUMM (130-400); Red Blood Count 3.03 MC/CUMM (3.8-5.5); Red Cell Distribution Width 15.6 % (9.3-17.3); White Blood Count 5.2 T/CUMM (4-12)
[2017-10-27 06:14] LABS: Calcium 10.9 MG/DL (8.5-10.1); Osmolality,Calculated 289.5 MOS/KG (273-304); Potassium 3.8 MMOL/L (3.5-5.1); Prealbumin 15.6 MG/DL (20-40)
[2017-10-27] MEDS: INSULIN REGULAR 100 UNIT/ML SUBCUT SCH ×4 (10:19→22:36)
[2017-10-27] MEDS: LABETALOL 20 MG/4 ML SYRINGE IV PRN ×2 (10:23→18:01)
[2017-10-27] MEDS: fentaNYL 25 MCG/HR PATCH TRANSDERM SCH (10:49)
[2017-10-27] MEDS: PANTOPRAZOLE 40 MG VIAL IV SCH (10:59)
[2017-10-27] MEDS: metFORMIN 500 MG TABLET PEG SCH ×2 (12:30→22:35)
[2017-10-27] MEDS: ERTAPENEM 1,000 MG in SODIUM CHLORIDE 0.9% 100 ML IV SCH (12:32)
[2017-10-27] MEDS: TRACE ELEMENTS (5) 1 ML, MULTIVITAMIN INJ 10 ML in AMINO ACIDS/DEXT/LYTES 4.25-5% 2,000 ML IV SCH (18:29)
[2017-10-27] MEDS: DONEPEZIL 10 MG TABLET PEG SCH (22:34)
[2017-10-27] MEDS: VERAPAMIL SR 240 MG TABLET PO SCH (22:34)
[2017-10-27] MEDS: ATORVASTATIN 40 MG TABLET PEG SCH (22:35)
[2017-10-27] MEDS: LANSOPRAZOLE ODT 30 MG TABLET PEG SCH (22:35)
[2017-10-27] MEDS: LATANOPROST 0.005% OPH SOLN 2.5 ML BOTTLE BOTH EYES SCH (22:36)
[2017-10-28] MEDS: GENTAMICIN 0.3% OPH SOLN 5 ML BOTTLE RIGHT EYE SCH ×6 (02:38→21:30)
[2017-10-28] MEDS: INSULIN REGULAR 100 UNIT/ML SUBCUT SCH ×4 (07:51→21:31)
[2017-10-28] MEDS ORDERED: LIDOCAINE 100 MG/5 ML SYRINGE ONE (08:26)
[2017-10-28] MEDS ORDERED: PROPOFOL 200 MG/20 ML VIAL IV ONE (08:26)
[2017-10-28] MEDS: MORPHINE 2 MG/1 ML SYRINGE IV PRN ×3 (08:50→21:08)
[2017-10-28] MEDS: metFORMIN 500 MG TABLET PEG SCH ×2 (08:51→21:11)
[2017-10-28] MEDS: LANSOPRAZOLE ODT 30 MG TABLET PEG SCH ×2 (08:51→21:11)
[2017-10-28] MEDS: ERTAPENEM 1,000 MG in SODIUM CHLORIDE 0.9% 100 ML IV SCH (11:58)
[2017-10-28] MEDS: LORazepam 0.5 MG TABLET PO SCH ×2 (15:14→21:11)
[2017-10-28] MEDS: VERAPAMIL SR 240 MG TABLET PO SCH (21:11)
[2017-10-28] MEDS: DONEPEZIL 10 MG TABLET PEG SCH (21:11)
[2017-10-28] MEDS: ATORVASTATIN 40 MG TABLET PEG SCH (21:11)
[2017-10-28] MEDS: LATANOPROST 0.005% OPH SOLN 2.5 ML BOTTLE BOTH EYES SCH (21:30)
[2017-10-29] MEDS: GENTAMICIN 0.3% OPH SOLN 5 ML BOTTLE RIGHT EYE SCH ×6 (02:34→21:04)
[2017-10-29] MEDS: INSULIN REGULAR 100 UNIT/ML SUBCUT SCH ×4 (08:11→20:55)
[2017-10-29 09:33] LABS: Basophils % 0.3 % (0.0-0.8); Eosinophils # 0.2 10*3/uL (0.0-0.87); Eosinophils % 3.2 % (0.00-10.9); Hematocrit 24.6 VOL% (35.7-47.0); Hemoglobin 8.3 GM/DL (12.0-16.0); Immature Granulocytes % 0.5 %; Immature Granulocytes Absolute 0.04 #; Lymphocytes # 2.1 10*3/uL (1.4-4.0); Lymphocytes % 27.2 % (21.3-54.2); Mean Corpuscular HGB Conc 33.7 GM/DL (32-36); Mean Corpuscular Hemoglobin 28 PG (27-34); Mean Corpuscular Volume 84.2 FL (87-102); Mean Platelet Volume 8.8 FL (9.6-12.0); Monocytes # 0.6 10*3/uL (0.11-0.8); Monocytes % 8.5 % (1.7-12.7); Neutrophils # 4.6 10*3/uL (1.4-7.4); Neutrophils % 60.3 % (38.7-73.9); Platelet Count 383 T/CUMM (130-400); Red Blood Count 2.92 MC/CUMM (3.8-5.5); Red Cell Distribution Width 16.1 % (9.3-17.3); White Blood Count 7.6 T/CUMM (4-12)
[2017-10-29] MEDS: metFORMIN 500 MG TABLET PEG SCH ×2 (10:22→20:48)
[2017-10-29] MEDS: LANSOPRAZOLE ODT 30 MG TABLET PEG SCH ×2 (10:22→20:47)
[2017-10-29] MEDS: LORazepam 0.5 MG TABLET PO SCH ×3 (10:22→20:47)
[2017-10-29] MEDS: ERTAPENEM 1,000 MG in SODIUM CHLORIDE 0.9% 100 ML IV SCH (12:10)
[2017-10-29] MEDS: MORPHINE 2 MG/1 ML SYRINGE IV PRN (15:55)
[2017-10-29] MEDS: ATORVASTATIN 40 MG TABLET PEG SCH (20:47)
[2017-10-29] MEDS: DONEPEZIL 10 MG TABLET PEG SCH (20:47)
[2017-10-29] MEDS: VERAPAMIL SR 240 MG TABLET PO SCH (20:47)
[2017-10-29] MEDS: LATANOPROST 0.005% OPH SOLN 2.5 ML BOTTLE BOTH EYES SCH (20:56)
[2017-10-30] MEDS: GENTAMICIN 0.3% OPH SOLN 5 ML BOTTLE RIGHT EYE SCH ×6 (02:25→21:09)
[2017-10-30 05:25] LABS: Basophils % 0.3 % (0.0-0.8); Eosinophils # 0.3 10*3/uL (0.0-0.87); Hematocrit 25.2 VOL% (35.7-47.0); Hemoglobin 8.5 GM/DL (12.0-16.0); Immature Granulocytes % 0.7 %; Immature Granulocytes Absolute 0.05 #; Lymphocytes # 1.6 10*3/uL (1.4-4.0); Lymphocytes % 24.6 % (21.3-54.2); Mean Corpuscular HGB Conc 33.7 GM/DL (32-36); Mean Corpuscular Hemoglobin 29 PG (27-34); Mean Corpuscular Volume 84.6 FL (87-102); Mean Platelet Volume 9.2 FL (9.6-12.0); Monocytes # 0.6 10*3/uL (0.11-0.8); Monocytes % 8.7 % (1.7-12.7); Neutrophils # 4.1 10*3/uL (1.4-7.4); Neutrophils % 61.7 % (38.7-73.9); Platelet Count 399 T/CUMM (130-400); Red Blood Count 2.98 MC/CUMM (3.8-5.5); White Blood Count 6.7 T/CUMM (4-12)
[2017-10-30] MEDS: MORPHINE 2 MG/1 ML SYRINGE IV PRN ×2 (06:19→20:53)
[2017-10-30] MEDS: INSULIN REGULAR 100 UNIT/ML SUBCUT SCH ×4 (08:11→21:00)
[2017-10-30] MEDS: LORazepam 0.5 MG TABLET PO SCH ×3 (08:58→20:58)
[2017-10-30] MEDS: metFORMIN 500 MG TABLET PEG SCH ×2 (08:58→20:58)
[2017-10-30] MEDS: LANSOPRAZOLE ODT 30 MG TABLET PEG SCH ×2 (08:58→20:58)
[2017-10-30] MEDS: fentaNYL 25 MCG/HR PATCH TRANSDERM SCH (08:59)
[2017-10-30] MEDS: ERTAPENEM 1,000 MG in SODIUM CHLORIDE 0.9% 100 ML IV SCH (11:20)
[2017-10-30] MEDS: VERAPAMIL SR 240 MG TABLET PO SCH (20:58)
[2017-10-30] MEDS: DONEPEZIL 10 MG TABLET PEG SCH (20:58)
[2017-10-30] MEDS: LATANOPROST 0.005% OPH SOLN 2.5 ML BOTTLE BOTH EYES SCH (21:00)
[2017-10-30] MEDS: ATORVASTATIN 40 MG TABLET PEG SCH (21:00)
[2017-10-31] MEDS: GENTAMICIN 0.3% OPH SOLN 5 ML BOTTLE RIGHT EYE SCH ×4 (02:31→14:54)
[2017-10-31 05:39] LABS: Calcium 9.5 MG/DL (8.5-10.1); Osmolality,Calculated 282.4 MOS/KG (273-304); Potassium 4.2 MMOL/L (3.5-5.1)
[2017-10-31] MEDS: INSULIN REGULAR 100 UNIT/ML SUBCUT SCH ×2 (09:02→11:35)
[2017-10-31] MEDS: metFORMIN 500 MG TABLET PEG SCH (09:49)
[2017-10-31] MEDS: LORazepam 0.5 MG TABLET PO SCH (09:50)
[2017-10-31] MEDS: LANSOPRAZOLE ODT 30 MG TABLET PEG SCH (09:50)
[2017-10-31] MEDS ORDERED: LEVOFLOXACIN 500 MG TABLET PO SCH (11:00)
[2017-10-31 12:30] VITALS: BP 111/64
== END 2017-10-31 14:48 | disposition hospice, home (50) | DRG 394 ==
LOC: EDUNIT# → EDBD → N.ED 18:59 → N.EDINP 18:59 → N.4E 21:59 → SUATTDRO 10-28 13:53
PROVIDERS: ADMIT Internal Medicine; ATTEND Internal Medicine Geriatric Medicine
PROC: EGDWPEG (ICD-10-PCS; 2017-10-27 07:05)

== ENCOUNTER 2017-11-02 15:58 | Observation (INO) ==
[2017-11-02] MEDS ORDERED: SODIUM CHLORIDE 0.9% 500 ML IV STA ×2 (16:25→18:39)
[2017-11-02 16:59] LABS: Basophils % 0.2 % (0.0-0.8); Eosinophils # 0.3 10*3/uL (0.0-0.87); Eosinophils % 3.3 % (0.00-10.9); Hematocrit 26.5 VOL% (35.7-47.0); Hemoglobin 8.6 GM/DL (12.0-16.0); Immature Granulocytes % 0.9 %; Immature Granulocytes Absolute 0.07 #; Lymphocytes # 1.7 10*3/uL (1.4-4.0); Lymphocytes % 20.6 % (21.3-54.2); Mean Corpuscular HGB Conc 32.5 GM/DL (32-36); Mean Corpuscular Hemoglobin 28 PG (27-34); Mean Corpuscular Volume 87.5 FL (87-102); Mean Platelet Volume 8.8 FL (9.6-12.0); Monocytes # 0.8 10*3/uL (0.11-0.8); Monocytes % 9.4 % (1.7-12.7); Neutrophils # 5.4 10*3/uL (1.4-7.4); Neutrophils % 65.6 % (38.7-73.9); Platelet Count 373 T/CUMM (130-400); Red Blood Count 3.03 MC/CUMM (3.8-5.5); Red Cell Distribution Width 15.9 % (9.3-17.3); White Blood Count 8.2 T/CUMM (4-12)
[2017-11-02 17:09] LABS: INR 1.1; PT Patient Result 11.8 SECS; Partial Thromboplastin Time 29.9 SECS (0-40)
[2017-11-02] MEDS ORDERED: AMPICILLIN/SULBACTAM 3,000 MG in SODIUM CHLORIDE 0.9% 100 ML IV STA (17:14)
[2017-11-02 17:33] LABS: Albumin 3.1 G/DL (3.4-5.0); Bilirubin,Total 0.6 MG/DL (0.2-1.0); Calcium 10.2 MG/DL (8.5-10.1); Osmolality,Calculated 278.5 MOS/KG (273-304); Potassium 4.1 MMOL/L (3.5-5.1); Total Protein 7.4 G/DL (6.4-8.3)
[2017-11-02 17:37] LABS: Apearance,Urine CLOUDY (Clear); Bilirubin,Urine Negative (Negative); Blood, Urine Negative (Negative); Calcium Oxalate Crystals,Urine Occasional /HPF (Few); Glucose,Urine (UA) Negative (Negative); Hyaline Casts,Urine 9 /LPF (0-3); Ketones,Urine 5 mg/dL (Negative); Mucus,Urine Moderate /LPF (Occasional); Nitrite,Urine Negative (Negative); Protein,Urine 30 MG/DL; RBC,Urine 26 /HPF (0-4); Squamous Epithelial Cell,Urine Occasional /HPF (0-10); Urine Specific Gravity 1.018 (1.001-1.035); Urine Urobilinogen < 2.0 EU/DL (0.2-1.0)
[2017-11-02 17:38] LABS: Urine Color Yellow (Yellow)
[2017-11-02] MEDS ORDERED: AMPICILLIN/SULBACTAM 3,000 MG VIAL ONE (18:20)
[2017-11-02] MEDS ORDERED: MORPHINE 2 MG/1 ML SYRINGE IV PRN (18:35)
[2017-11-02] MEDS ORDERED: ONDANSETRON 4 MG/2 ML VIAL IV PRN (18:35)
[2017-11-02] MEDS ORDERED: ALBUTEROL/IPRATROPIUM 3 ML NEB RESP TX PRN (18:37)
[2017-11-02] MEDS ORDERED: traMADol 50 MG TABLET PEG PRN (18:37)
[2017-11-02] MEDS ORDERED: LORAZEPAM PEG PRN (18:37)
[2017-11-02] MEDS ORDERED: MORPHINE SULFATE PEG PRN (18:37)
[2017-11-02] MEDS ORDERED: GLUCAGON 1 MG VIAL IM PRN (18:44)
[2017-11-02] MEDS ORDERED: DEXTROSE 50% 25 GM/50 ML VIAL IV PRN (18:44)
[2017-11-02] MEDS ORDERED: ENOXAPARIN 40 MG/0.4 ML SYRINGE SUBCUT SCH (21:00)
[2017-11-02] MEDS ORDERED: FAMOTIDINE 20 MG TABLET PEG SCH (21:00)
[2017-11-02] MEDS: metFORMIN 500 MG TABLET PEG SCH (23:00)
[2017-11-02] MEDS: VERAPAMIL SR 240 MG TABLET PO SCH (23:00)
[2017-11-02] MEDS: DONEPEZIL 10 MG TABLET PEG SCH (23:00)
[2017-11-02] MEDS: ATORVASTATIN 40 MG TABLET PEG SCH (23:02)
[2017-11-02] MEDS: LATANOPROST 0.005% OPH SOLN 2.5 ML BOTTLE BOTH EYES SCH (23:02)
[2017-11-02] MEDS: SODIUM CHLORIDE 0.9% 1,000 ML IV SCH (23:09)
[2017-11-02] MEDS: INSULIN REGULAR 100 UNIT/ML SUBCUT SCH (23:37)
[2017-11-03] MEDS: AMPICILLIN/SULBACTAM 3,000 MG in SODIUM CHLORIDE 0.9% 100 ML IV SCH ×4 (01:12→20:53)
[2017-11-03 05:11] LABS: Basophils % 0.2 % (0.0-0.8); Eosinophils # 0.2 10*3/uL (0.0-0.87); Eosinophils % 3.6 % (0.00-10.9); Hemoglobin 7.3 GM/DL (12.0-16.0); Immature Granulocytes % 1.2 %; Immature Granulocytes Absolute 0.07 #; Lymphocytes # 1.3 10*3/uL (1.4-4.0); Mean Corpuscular HGB Conc 33.2 GM/DL (32-36); Mean Corpuscular Hemoglobin 28 PG (27-34); Mean Corpuscular Volume 85.3 FL (87-102); Mean Platelet Volume 9.1 FL (9.6-12.0); Monocytes # 0.5 10*3/uL (0.11-0.8); Monocytes % 8.3 % (1.7-12.7); Neutrophils % 65.7 % (38.7-73.9); Platelet Count 345 T/CUMM (130-400); Red Blood Count 2.58 MC/CUMM (3.8-5.5); Red Cell Distribution Width 15.8 % (9.3-17.3); White Blood Count 6.1 T/CUMM (4-12)
[2017-11-03 05:49] LABS: Potassium 3.8 MMOL/L (3.5-5.1)
[2017-11-03] MEDS ORDERED: SODIUM CHLORIDE 0.9% 1,000 ML IV PRN (06:36)
[2017-11-03] MEDS ORDERED: FUROSEMIDE 20 MG/2 ML VIAL IV PRN (06:36)
[2017-11-03] MEDS ORDERED: GLUCAGON 1 MG VIAL IM PRN (07:14)
[2017-11-03] MEDS ORDERED: DEXTROSE 50% 25 GM/50 ML VIAL IV PRN (07:14)
[2017-11-03] MEDS: INSULIN REGULAR 100 UNIT/ML SUBCUT SCH ×4 (07:50→23:45)
[2017-11-03] MEDS: SODIUM CHLORIDE 0.9% 1,000 ML IV SCH ×2 (09:32→17:04)
[2017-11-03] MEDS: FLUCONAZOLE INJ 100 MG in IV BAG 1 EACH IV SCH (09:32)
[2017-11-03] MEDS: LISINOPRIL/HCTZ 20-12.5 MG TABLET PEG SCH (09:34)
[2017-11-03] MEDS: metFORMIN 500 MG TABLET PEG SCH ×2 (11:05→20:56)
[2017-11-03] MEDS ORDERED: METHYLENE BLUE 10 ML VIAL IV ONE (12:28)
[2017-11-03] MEDS: LANSOPRAZOLE ODT 30 MG TABLET PEG SCH ×2 (13:14→20:55)
[2017-11-03 18:52] LABS: Hemoglobin 10.1 GM/DL (12.0-16.0)
[2017-11-03] MEDS: DONEPEZIL 10 MG TABLET PEG SCH (20:56)
[2017-11-03] MEDS: VERAPAMIL SR 240 MG TABLET PO SCH (20:56)
[2017-11-03] MEDS: ATORVASTATIN 40 MG TABLET PEG SCH (20:56)
[2017-11-03] MEDS: LATANOPROST 0.005% OPH SOLN 2.5 ML BOTTLE BOTH EYES SCH (23:17)
[2017-11-04] MEDS: AMPICILLIN/SULBACTAM 3,000 MG in SODIUM CHLORIDE 0.9% 100 ML IV SCH ×2 (01:00→08:01)
[2017-11-04] MEDS: SODIUM CHLORIDE 0.9% 1,000 ML IV SCH ×2 (03:38→10:10)
[2017-11-04] MEDS: INSULIN REGULAR 100 UNIT/ML SUBCUT SCH (06:22)
[2017-11-04 06:44] LABS: Basophils % 0.3 % (0.0-0.8); Eosinophils # 0.2 10*3/uL (0.0-0.87); Eosinophils % 3.4 % (0.00-10.9); Hematocrit 28.9 VOL% (35.7-47.0); Hemoglobin 9.9 GM/DL (12.0-16.0); Immature Granulocytes % 1.2 %; Immature Granulocytes Absolute 0.08 #; Lymphocytes # 1.4 10*3/uL (1.4-4.0); Lymphocytes % 20.6 % (21.3-54.2); Mean Corpuscular HGB Conc 34.3 GM/DL (32-36); Mean Corpuscular Hemoglobin 29 PG (27-34); Mean Corpuscular Volume 85.3 FL (87-102); Monocytes # 0.5 10*3/uL (0.11-0.8); Monocytes % 8.1 % (1.7-12.7); Neutrophils # 4.3 10*3/uL (1.4-7.4); Neutrophils % 66.4 % (38.7-73.9); Platelet Count 336 T/CUMM (130-400); Red Blood Count 3.39 MC/CUMM (3.8-5.5); Red Cell Distribution Width 15.1 % (9.3-17.3); White Blood Count 6.5 T/CUMM (4-12)
[2017-11-04] MEDS: FLUCONAZOLE INJ 100 MG in IV BAG 1 EACH IV SCH (07:31)
[2017-11-04 07:44] LABS: Calcium 8.8 MG/DL (8.5-10.1); Osmolality,Calculated 290.8 MOS/KG (273-304); Potassium 3.8 MMOL/L (3.5-5.1)
[2017-11-04] MEDS: metFORMIN 500 MG TABLET PEG SCH (08:01)
[2017-11-04] MEDS: LISINOPRIL/HCTZ 20-12.5 MG TABLET PEG SCH (08:01)
[2017-11-04] MEDS: LANSOPRAZOLE ODT 30 MG TABLET PEG SCH (08:01)
[2017-11-04 09:00] VITALS: BP 140/73
== END 2017-11-04 11:11 | disposition hospice, home (50) ==
LOC: EDUNIT# → EDBD → N.EDINP 15:58 → N.ED 15:58 → N.2E 18:52 → N.5E 19:05
PROVIDERS: ADMIT Internal Medicine Geriatric Medicine; ATTEND Internal Medicine Geriatric Medicine